=== PATIENT | female | born 1960 | race Caucasian/White ===

== ENCOUNTER 2019-10-19 11:30 | Outpatient (CLI) | payer OTHER, SELFPAY ==
--- NOTE | 2019-10-19 12:05 | XR_ITS ---
WS: [id number] Chest 2 views, 10/19/2019 Clinical Data: SHORT OF BREATH R SIDED PAIN/MILD ASTHMA EXACERBATION Comparison: Portable chest, 09/20/2013. Findings: No nodules, masses or effusions are seen. The heart is normal. The aortic arch and descendi ng aorta show minimal tortuosity. The pulmonary vascularity is not increased. No pneumonia or pneumot horax is seen. Diaphragms are flattened. There are clips in the right upper quadrant from a cholecyst ectomy. XR/XR chest 2V* [id number] Impression: Atherosclerosis and hyperinflation.
== END 2019-10-19 11:31 | disposition home or self-care (01) ==
LOC: RAD 11:37
PROVIDERS: Family Provider Registered Nurse; PCP Registered Nurse; Visit Provider Registered Nurse
DX: J45.901 Unspecified asthma with (acute) exacerbation (principal); I70.0 Atherosclerosis of aorta
CPT/HCPCS: 71046

== ENCOUNTER 2019-11-15 17:11 | Emergency (ER) | payer OTHER, SELFPAY ==
[2019-11-15 18:15] VITALS: BP 157/79; PULSE 98; RESP 16; TEMP 36.7; O2SAT 99; BMI 24.3
--- NOTE | 2019-11-15 19:00 | ED_ITS ---
HPI - Extremity Problem General: Chief complaint: Extremity Problem,Nontraumatic Stated complaint: left leg pain Time Seen by Provider: 11/15/19 18:59 History of Present Illness: HPI Narrative: Patient is a 59-year-old female comes to the ED with left lower extremity pain. Patient states that she had Left foot surgery 2 years ago and some bone spurs Were removed some spaces in between bones were opened up to help possible nerve decompression. Patient state s that after surgery she started having burning nerve pain that starts in the foot near the surgery site and moves up left leg. It moves up on the lateral side of the left leg and into the lateral part of the left thigh. She states that this has been going on for last 2 years this got worse and has progressed. She states the pain comes on at random times throughout the day and does not correlate with any movement or range of motion of the left leg. These episodes of pain will last anywhere from minutes to hours. The past couple days the pain is gotten a lot worse in last longer. Currently she is not having any pain in her left leg ED, but states last night she was having pain all night it was a 10 out of 10. Denies any leg swelling, chest pain, shortness of breath, abdominal pain, nausea, vomiting, bowel or bladder symptoms. Review of Systems General: Reports: 10 or more systems reviewed and unremarkable except in HPI and below PFSH ED PFSH: Statuses (acute, chronic, etc) shown below reflect problem list status as previously entered and may not be historically accurate Family History Father Prostate cancer Heart disease Mother Heart disease Diabetes Thyroid disease Hypertension Brother Bladder cancer Other Cancer Diverticulitis Myocardial infarct Social History Smoking and tobacco status: former smoker Quit status (tobacco): has quit using tobacco Year quit tobacco: 1982 Alcohol intake: never Lives independently: No Household members: spouse Marital status: Current occupational status: unemployed Current gender identity: Female Physical Exam Const: COMMON NORMALS: oriented x3 HENMT: COMMON NORMALS: normocephalic HEAD & SCALP: normocephalic MOUTH: oral and palatal mucosa normal THROAT: posterior oropharynx normal and uvula midline Neck/C-Spine: COMMON NORMALS: supple GENERAL: Yes normal visual inspection Resp: COMMON NORMALS: normal respiratory effort, no retractions, no use of accessory muscles and clear to auscultation bilaterally AUSCULTATION: clear to auscultation bilaterally Cardio: COMMON NORMALS: regular rate, regular rhythm, S1 normal heart sound, S2 normal heart sound, no gallops, no clicks, no murmurs and peripheral pulses 2+ throughout RATE: regular rate RHYTHM: regular rhythm HEART SOUNDS: S1 normal and S2 normal PERIPHERAL PULSES: pulses 2+ throughout GI: COMMON NORMALS: normal to inspection, nondistended, normoactive bowel sounds, soft to palpation, non-tender and no masses PALPATION: Yes soft : COMMON NORMALS: Yes no CVA tenderness BLADDER/KIDNEY EXAM: Yes no CVA tenderness Back/Pelvis: COMMON NORMALS: no CVA tenderness Extremity: LEFT LOWER EXTREMITY: Yes lower leg Left lower leg: Yes inspection (normal-no swelling or erythema), Yes palpation (mild tenderness lateral side ) and Yes neurovascular exam (intact) and Yes foot & digits (Midfoot) Left foot and digits: Yes inspection (no swelling or erythema.), Yes palpation (Tenderness on midfoot), Yes ROM (Normal) and Yes neurovascular exam (Intact) Neuro: COMMON NORMALS: oriented x3 and moves all extremities Skin: COMMON NORMALS: no rashes or lesions noted GENERAL SKIN EXAM: no rashes or lesions noted Course Vital Signs: Vital signs: Vital Signs Temperature 98.1 F 11/15/19 18:15 Pulse Rate 76 11/15/19 22:41 Respiratory Rate 18 11/15/19 22:41 Blood Pressure 133/86 11/15/19 22:41 Pulse Oximetry 99 11/15/19 22:41 Discharge Plan Discharge Patient Disposition: Home, Self-Care Clinical Impression: Nerve pain Condition: Stable Prescriptions: New gabapentin 300 mg capsule 300 mg PO BID Qty: 30 RF: 0 No Action levocetirizine 5 mg tablet 5 mg PO ONCE RF: 0 levothyroxine [Synthroid] 100 mcg tablet 100 mcg PO ONCE RF: 0 diclofenac epolamine [Flector] 1.3 % patch 12 hour 1 patch TOPICAL Q12H RF: 0 vitamin B complex [B Complex-Vitamin B12] Tablet 1 tab PO ONCE RF: 0 digestive enzymes Tablet 1 tab PO ONCE RF: 0 albuterol sulfate [ProAir HFA] 90 mcg/actuation HFA aerosol inhaler 2 inh INHALATION Q8H PRN (Reason: shortness of breath or wheezing) Qty: 6.7 RF: 0 montelukast [Singulair] 10 mg tablet 10 mg PO .at bedtime Qty: 90 RF: 0 Discharge Orders: Discharge Order (Routine); Ordered 11/15/19 Ordered By: Ryan Atkins Referrals: Asuncion Barahona, BUILD[employer] ENGINE[employer] [Primary Care Provider] - Discharge Diet: Regular Discharge Activity: Increase activity as tolerated Activity Restrictions/Additional Instructions: I put a referral to podiatry in to social work. They should be calling you in the next several days to set up an appointment.You can take the gabapentin as prescribed. Remember the first day take a dose of 300 mg, second day 600 mg, third day 900 mg and then you can up the dose as needed for pain up to 1800 mg a day. Take ibuprofen also to help with pain. Discharge Date/Time: 11/15/19 22:45 Coding Level of Care Code ED President/[employer] for Joanne Sanders
[2019-11-15 19:55] VITALS: PULSE 73
[2019-11-15] MEDS: gabapentin 300 mg Capsule PO (21:13)
[2019-11-15 22:41] VITALS: BP 133/86; PULSE 76; RESP 18; O2SAT 99
--- NOTE | 2019-11-16 11:25 | DCPLANNER ---
auditing manager had message to schedule a follow up appointment for patient with ortho. auditing manager called the ortho clinic, spoke with Lary. auditing manager was told that patients information would be printed and reviewed. Clinic will call nurse case manager and patient with appointment information.
--- NOTE | 2019-11-17 11:12 | DCPLANNER ---
Patient has a follow up appointment scheduled for Thursday, December 05, 2019 at 2:[address] Garrido. Clinic will call patient with appointment information.
--- NOTE | 2019-12-19 14:21 | DCPLANNER ---
Patient did attend appointment scheduled for 11.30.19 with ortho.
== END 2019-11-15 22:45 | disposition home or self-care (01) ==
PROVIDERS: Emergency Provider Physician Assistant; Family Provider Registered Nurse; PCP Registered Nurse
DX: M79.2 Neuralgia and neuritis, unspecified (principal); Z87.891 Personal history of nicotine dependence; Z98.890 Other specified postprocedural states
CPT/HCPCS: 99281; 99283

== ENCOUNTER → 2019-11-16 17:12 | Outpatient (BNVA) | payer OTHER, SELFPAY | PROVIDERS: Family Provider Registered Nurse; PCP Registered Nurse; Visit Provider Nurse Practitioner | DX: J06.9 Acute upper respiratory infection, unspecified (principal) | CPT/HCPCS: 87804 ==

== ENCOUNTER 2019-12-04 09:29 | Outpatient (CLI) | payer OTHER, SELFPAY ==
[2019-12-04 09:58] LABS: Basophils # 0.1 10^3/uL (0.0-0.1); Eosinophils # 0.1 10^3/uL (0.0-0.8); Eosinophils % 2.1 %; Hematocrit 40.4 % (37.0-47.0); Hemoglobin 13.2 g/dL (11.5-15.3); Lymphocytes # 4.1 10^3/uL (0.8-4.8); Lymphocytes % 65.3 %; Mean Corpuscular HGB Conc 32.7 g/dL (30.0-36.0); Mean Corpuscular Hemoglobin 29.3 pg (28.0-34.0); Mean Corpuscular Volume 89.6 fL (81-99); Mean Platelet Volume 9.9 fL (7.4-10.4); Monocytes # 0.4 10^3/uL (0.2-0.9); Monocytes % 5.9 %; Neutrophils # 1.6 10^3/uL (1.8-7.7); Neutrophils % 25.5 %; Nucleated Red Blood Cells % 0 %; Platelet Count 208 10^3/cmm (130-400); Red Blood Count 4.51 10^6/uL (4.1-5.3); Red Cell Distribution Width 13.4 % (12.1-15.1); White Blood Count 6.2 10^3/uL (4.0-10.0)
[2019-12-04 10:27] LABS: Slide Review Slide Review Perform
[2019-12-05 15:47] LABS: Immunoglobulin E 25 kU/L (<OR=114)
== END 2019-12-04 09:30 | disposition home or self-care (01) ==
LOC: LAB 09:33
PROVIDERS: Family Provider Registered Nurse; PCP Registered Nurse; Visit Provider Internal Medicine Critical Care Medicine
DX: J45.901 Unspecified asthma with (acute) exacerbation (principal); J32.9 Chronic sinusitis, unspecified; R06.02 Shortness of breath
CPT/HCPCS: 36415; 82785; 85025

== ENCOUNTER → 2019-12-05 13:44 | Outpatient (BNVA) | payer OTHER, SELFPAY | PROVIDERS: Family Provider Registered Nurse; PCP Registered Nurse; Referring Provider Physician Assistant; Visit Provider Podiatrist Foot & Ankle Surgery | DX: M79.672 Pain in left foot (principal) | CPT/HCPCS: 73630 ==

== ENCOUNTER 2019-12-13 08:08 | Outpatient (CLI) | payer OTHER, SELFPAY ==
--- NOTE | 2019-12-13 16:16 | PFTS_ITS ---
Date of Study:12/13/19 Date of Dictation: MECHANICS: Forced vital capacity (FVC) is normal. Forced expiratory volume in one second (FEV1) is normal. FEV1/FVC is normal. FLOW VOLUME LOOP: Scooping suggestive of small airways disease. LUNG VOLUMES: Total lung capacity (TLC) is normal. Residual volume (RV) is normal. DIFFUSING CAPACITY FOR CARBON MONOXIDE: Normal. INTERPRETATION: The pulmonary function tests are normal. There is no postbronchodilator response. The flow-volume loop is suggestive of small airways disease which could be secondary to smoking or age-related. Gas exchange (DLCO) is normal. MTDD
== END 2019-12-13 08:09 | disposition home or self-care (01) ==
PROVIDERS: Family Provider Registered Nurse; PCP Registered Nurse; Visit Provider Internal Medicine Critical Care Medicine
DX: R06.02 Shortness of breath (principal)
CPT/HCPCS: 94060; 94726; 94729

== ENCOUNTER 2020-01-02 11:18 | Outpatient (CLI) | payer OTHER, SELFPAY ==
--- NOTE | 2020-01-02 11:30 | CT_ITS ---
WS: [id number] CT ABDOMEN AND PELVIS NONCONTRAST HISTORY: kidney stone TECHNIQUE: Imaging performed through the abdomen and pelvis. Coronal and sagittal reformats are submi tted. All CT scans at [facility] use at least one of these dose optimization techniques: automated exposure control; mA and/or kV adjustment per patient size (includes targeted exams where d ose is matched to clinical indication); or iterative reconstruction. DLP: 1067.96 mGycm COMPARISON: 08/26/2012 Lower thorax: Linear atelectasis at the RIGHT middle lobe and RIGHT lower lobe bases. No mass or nodu les. Small hiatal hernia. Liver: Normal, no mass or intrahepatic dilatation. Gallbladder: Prior cholecystectomy. Pancreas: Normal. Spleen: Normal. Adrenal glands: Normal. Right kidney: Normal size RIGHT kidney. Nonobstructing 3 mm calcification lower pole. No significant perinephric stranding. 5 mm irregular shaped stone at the UV junction. The adjacent more proximal ure ter is very minimally dilated. This calcification was not present on 08/26/2010. Left kidney: Normal size with no stones, mass or atrophy. Abdominal aorta and IVC are unremarkable. No free fluid, intraperitoneal air or significant lymphadenopathy. GI tract: Diffuse constipation. The appendix is normal. There are a few scattered diverticula without acute inflammation. Abdominal wall: Fat-containing umbilical hernia. Pelvis: Numerous calcifications in the pelvis. Phleboliths and a 5 mm calcification in the distal RIG HT ureter. Osseous structures: No osteoblastic or osteolytic bone disease. CT/CT kidney stone [id number] IMPRESSION: 1. 5 mm irregular shaped calcification in the distal RIGHT ureter. RIGHT UV ju nction calcification causing only minimal adjacent proximal hydro-ureter. 2. Nonobstructing 3 mm calcification lower pole RIGHT kidney. 3. Normal appendix. 4. Constipation and small hiatal hernia. 5. Prior cholecystectomy.
== END 2020-01-02 11:19 | disposition home or self-care (01) ==
LOC: RADWPI 11:22
PROVIDERS: Family Provider Registered Nurse; PCP Registered Nurse; Visit Provider Registered Nurse
DX: N20.0 Calculus of kidney (principal); N13.4 Hydroureter; K59.00 Constipation, unspecified; K44.9 Diaphragmatic hernia without obstruction or gangrene; Z90.49 Acquired absence of other specified parts of digestive tract
CPT/HCPCS: 74176; 81000

== ENCOUNTER 2020-02-08 06:50 | Outpatient (CLI) | payer OTHER, SELFPAY ==
--- NOTE | 2020-02-08 07:00 | XR_ITS ---
WS: [id number] ABDOMEN 1 VIEW(S) HISTORY: URETERAL CALCULUS COMPARISON: None available. Normal bowel gas pattern. No suspicious calcifications or masses. No distal RIGHT ureteral calcification identified. No bone abnormality. Prior cholecystectomy. XR/XR KUB [id number] IMPRESSION: Prior cholecystectomy. No ureteral calcification identified.
== END 2020-02-08 06:51 | disposition home or self-care (01) ==
PROVIDERS: Family Provider Registered Nurse; PCP Registered Nurse; Visit Provider Urology
DX: N20.1 Calculus of ureter (principal); N39.0 Urinary tract infection, site not specified; N39.41 Urge incontinence; Z90.49 Acquired absence of other specified parts of digestive tract
CPT/HCPCS: 74018; 81001

== ENCOUNTER 2020-02-12 11:11 | Day surgery (SDC) | payer OTHER, SELFPAY ==
[2020-02-12] VITALS (7 sets, daily range): BP systolic 107–143; BP diastolic 60–71; PULSE 60–95; RESP 15–18; TEMP 36.2–37; O2SAT 98–100; BMI 24.7
--- NOTE | 2020-02-12 11:18 | XR_ITS ---
WS: [id number] XR KUB [id number] REASON FOR EXAM: right ureteral stone FINDINGS: Nonspecific gas and feces are seen throughout the colon. Bilateral bat wing deformities at the L5-S1 articulations are seen bilaterally. A definite stone is not seen in the region of the ureters. XR/XR KUB 19516 IMPRESSION: No definite stones are seen in the kidneys ureter bladder region on the right.
[2020-02-12] MEDS: sodium chloride 0.9% 1,000 ML 30 ML IV (12:05)
[2020-02-12] MEDS: scopolamine 1.5 Patch 1 PATCH TRANSDERMA (12:07)
--- NOTE | 2020-02-12 12:17 | ANES.PREANE2 ---
Pre-Anesthetic Assessment Pre-Anesthetic Assessment: Height/Weight: Height 1.6 m Weight 63.503 kg Temp Pulse Resp BP Pulse Ox 98.6 F 88 18 143/71 100 02/12/20 11:51 02/12/20 11:51 02/12/20 11:51 02/12/20 11:51 02/12/20 11:51 Preop Diagnosis: Refractory right distal ureteral stone Proposed Procedure: Operation Date: 02/12/20 13:35 Proposed Procedures p ESWL 93934 18243 63538 N20.1(Right) - Carl Sosa MD s Right Distal Ureteral Stone(Right) - Carl Sosa MD s Poss Cystoscopy(Right) - Carl Sosa MD s Retrograde Pyelogram(Right) - Carl Sosa MD Familial anesthetic complications: PONV -placed scopolamine patch Was Beta Lauren taken within 24 hours: N/A Last intake: Intake Last Liquid Date 02/11/20 Last Liquid Time 22:00 Last Solid Date 02/10/20 Last Solid Time 22:00 Social: Social History: No alcohol and No tobacco Exam: Pre-Anes Outpt Exam: alert, oriented x 3, clear to auscultation bilaterally and regular rate & rhythm Airway: Cervical ROM: WNL MP: 1 Dentition: False Additional comments: cleft palate Pulmonary: Pulmonary: Asthma CV/HEM: CV/HEM: None reported : : None reported Hepatic: Hepatic: None reported GI: GI: None reported Metabolic: Metabolic: Thyroid Musc/skel: Musc/skel: None reported Neuropsych: Neuropsych: None reported Anesthetic Plan: ASA status: 2 Anesthesia: General Risk of > 500 ml blood loss (7ml/kg in children): No Meds/Allergies Current Medications: Current Medications Generic Name Dose Route Start Last Admin Trade Name Freq PRN Reason Stop Dose Admin Sodium Chloride 1,000 mls @ 30 ml s/hr 02/12/20 11:30 02/12/20 12:05 Sodium Chloride 0.9% IV 02/13/20 11:29 30 mls/hr .Q24H ELY Administration PFSH Anesthesia PFSH: Medical History (Updated 02/08/20 @ 15:10 by Carl Sosa MD) Acid reflux History of cleft palate Hypothyroid Neuritis of left lower extremity Recurrent UTI Urgency incontinence Surgical History History of cholecystectomy History of hernia repair History of hysterectomy History of rectal surgery Social History Smoking and tobacco status: former smoker Quit status (tobacco): has quit using tobacco Year quit tobacco: 1982PD x 15 Years Alcohol intake: never Lives independently: Yes Household members: spouse Marital status: Current occupational status: disabled History of recent travel: Yes (in june) Current gender identity: Female Data Anesthesia Cardiac Studies: No Data to Display
--- NOTE | 2020-02-12 13:19 | P.HPUD_ITS ---
Surgery/Procedure H&P Update DATE OF PROCEDURE: February 12, 2020 DATE H&P PERFORMED: 02/08/20 H&P UPDATE INFORMATION: I have reviewed H&P completed within last 30 days, I have examined patient prior to procedure, No changes to prior documentation and H&P is in [facility] [place] on date indicated PREOP DIAGNOSIS: Refractory right distal ureteral stone PLANNED PROCEDURE: Operation Date: 02/12/20 13:35 Proposed Procedures p ESWL [id number] 50050 24217 N20.1(Right) - MD sherry Matias Right Distal Ureteral Stone(Right) - MD sherry Matias Poss Cystoscopy(Right) - MD sherry Matias Retrograde Pyelogram(Right) - Carl Sosa MD
--- NOTE | 2020-02-12 13:34 | PM.OP ---
Operative Report Date of procedure: February 12, 2020 Pre-op Diagnosis: Refractory right distal ureteral stone Post-op diagnosis: same Procedure Done: Cystoscopy, right retrograde ureteropyelogram Right ureteral stent placement Right distal ureteral stone extracorporeal shockwave lithotripsy Pathology: none sent Surgeon: Ian Anesthesia: General Complications: None Findings: Stone confirmed to be in the ureter with small amount of contrast injected in the right distal ureter. Treated with ESWL with shock head positioned anteriorly. Good change 6 x 26 stent Condition: stable Disposition: PACU Brief History: Evelin is a very pleasant 59-year-old white female recently diagnosed with a right distal ureteral stone with obstructive changes. Stone failed to pass with conservative management and due to ongoing symptoms over a period of approximately 1 month she elected to proceed with intervention. It was decided to proceed with ESWL as first-line therapy with or without stenting. Procedure: After routine preoperative evaluation examination and obtaining of informed consent she was taken to the operating suite on 02/12/2020 where general anesthesia was administered without difficulty after appropriate timeout was performed, SCDs confirmed to be functioning, preoperative antibiotics administered, beta-michael protocol confirmed. Prepped and draped in usual sterile fashion in dorsolithotomy position pain careful attention to avoiding pressure points. 21 Yoruba cystoscope with 30 degree lens was introduced into urethral meatus and advanced into the bladder under videoscopy. Bladder was systematically examined. No other gross pathology was identified. 8 Yoruba cone-tip catheter was intubated into the right ureteral orifice for right retrograde ureteropyelogram which confirmed the calcifications suspicious for the stone to be intraluminal. Flexible tip guidewire was then passed beyond the stone and a ureteral stent passed without difficulty and confirmed in appropriate position as confirmed via fluoroscopy and cystoscopy. Bladder was drained. She was then positioned in supine position paying careful attention to avoiding pressure points. With shock head positioned anteriorly the stone was brought into the focal point utilizing biplanar fluoroscopy. Treatment was initiated intensity of 1 and advance to an intensity of 6. Rate was initiated at 70 and advanced to 90 as the stone started demonstrating fragmentation change. At the completion the stone was significantly changed and difficult to identify. She tolerated procedure well without complications and was awakened in the operating room and returned to recovery room in stable condition. PLANS: 1. Follow-up next week with KUB possible cystoscopy stent removal.
[2020-02-12] MEDS: iohexol 300 mg/mL 50 mL Btl (OR ONLY) XX (14:01)
== END 2020-02-12 16:07 | disposition home or self-care (01) ==
PROVIDERS: Family Provider Registered Nurse; PCP Registered Nurse; Visit Provider Urology
PROC: (CPT 50590; principal; 2020-02-12 13:35)
PROC: 0TJB8ZZ Inspection of Bladder, Via Natural or Artificial Opening Endoscopic (ICD-10-PCS; CPT 52000; 2020-02-12 13:35)
PROC: (CPT 74420; 2020-02-12 13:35)
PROC: (CPT 50605; 2020-02-12 13:35)
DX: N20.1 Calculus of ureter (principal); Z87.891 Personal history of nicotine dependence; K21.9 Gastro-esophageal reflux disease without esophagitis; E03.9 Hypothyroidism, unspecified
CPT/HCPCS: 50590; 52332; 12345; 74018; C2625; J0690; J2001; J2704; J3010; J3490; J7030

== ENCOUNTER 2020-02-21 08:14 | Outpatient (CLI) | payer OTHER, SELFPAY ==
--- NOTE | 2020-02-21 08:21 | XR_ITS ---
WS: [id number] ABDOMEN: SUPINE FILM HISTORY: KIDNEY STONE COMPARISON: 02/12/2020 Moderate constipation. No organomegaly. Prior cholecystectomy. Right kidney: Double pigtail RIGHT ureteral stent. No calcifications overlying the kidney. There is a small calcification overlying the stent distally measuring 4 mm. Left kidney: No renal or ureteral stone identified. XR/XR KUB [id number] IMPRESSION: 1. Interval placement of a double pigtail RIGHT ureteral stent. 2. 4 mm calcification overlies the distal ureteral stent.
== END 2020-02-21 08:15 | disposition home or self-care (01) ==
LOC: RAD 08:18
PROVIDERS: Family Provider Registered Nurse; PCP Registered Nurse; Visit Provider Urology
DX: N20.0 Calculus of kidney (principal); N20.1 Calculus of ureter; Z96.0 Presence of urogenital implants; N39.0 Urinary tract infection, site not specified
CPT/HCPCS: 74018; 81001

== ENCOUNTER 2020-04-16 09:11 | Outpatient (CLI) | payer MEDICARE, OTHER, SELFPAY ==
--- NOTE | 2020-04-16 09:45 | XRR_ITS ---
PROCEDURE INFORMATION: Exam: XR Abdomen, 1 View Exam date and time: 04/16/2020 9:20 AM Age: 59 years old Clinical indication: Condition or disease; Kidney or ureter condition; Calculus (stone) in ureter; Patient HX: Follow up of stones x 3 months TECHNIQUE: Imaging protocol: XR of the abdomen. Views: Frontal supine view of the abdomen. 1 View. COMPARISON: OK XR KUB [id number] 02/21/2020 8:26 AM FINDINGS: Gastrointestinal tract: bowel gas pattern is nonspecific. Air filled large bowel including distal rectal gas. Scattered loops of air filled small bowel none of which are dilated. Large amount of stool throughout the large bowel. Organs: Surgical clips are present in the region of the gallbladder fossa. Bones/joints: Unremarkable. XR/XR KUB 58068 IMPRESSION: 1. Bowel gas pattern is nonspecific. Air filled large bowel including distal rectal gas. Scattered loops of air filled small bowel none of which are dilated. 2. Large amount of stool throughout the large bowel.
== END 2020-04-16 09:12 | disposition home or self-care (01) ==
LOC: RAD 09:16
PROVIDERS: Family Provider Registered Nurse; PCP Registered Nurse; Visit Provider Urology
DX: N20.9 Urinary calculus, unspecified (principal); N39.0 Urinary tract infection, site not specified
CPT/HCPCS: 74018; 81001

== ENCOUNTER 2020-04-30 10:23 | Outpatient (CLI) | payer MEDICARE, OTHER, SELFPAY ==
--- NOTE | 2020-04-30 10:30 | XRR_ITS ---
PROCEDURE INFORMATION: Exam: XR Lumbosacral Spine, 2 or 3 Views Exam date and time: 04/30/2020 10:44 AM Age: 59 years old Clinical indication: Low back pain; Additional info: Low back pain x 1 week. TECHNIQUE: Imaging protocol: XR of the lumbosacral spine, 2 or 3 views. COMPARISON: MRI Lumbar Spine w/o 52793 09/16/2016 7:27 AM FINDINGS: Vertebrae: Transitional vertebra at the lumbosacral junction designated L6. Marginal osteophytes without significant disc space narrowing. No acute osseous pathology. Anatomic alignment. Intraperitoneal space: Status post cholecystectomy. Gastrointestinal tract: Prominent stool. XR/XR lumbar spine 2-3V* [id number] IMPRESSION: Transitional vertebra and marginal osteophytes.
== END 2020-04-30 10:24 | disposition home or self-care (01) ==
LOC: RAD 10:27
PROVIDERS: Family Provider Registered Nurse; PCP Registered Nurse; Visit Provider Nurse Practitioner Family
DX: M54.5 Low back pain (principal); E53.8 Deficiency of other specified B group vitamins; E03.9 Hypothyroidism, unspecified; R53.83 Other fatigue; E55.9 Vitamin D deficiency, unspecified; D64.9 Anemia, unspecified; Q76.49 Other congenital malformations of spine, not associated with scoliosis; M25.78 Osteophyte, vertebrae
CPT/HCPCS: 72100; 80053; 82306; 82607; 84443; 85025

== ENCOUNTER → 2020-06-20 15:17 | Outpatient (BNVA) | payer MEDICARE, OTHER, SELFPAY | PROVIDERS: PCP Registered Nurse; Visit Provider Registered Nurse | DX: N39.0 Urinary tract infection, site not specified (principal); N39.41 Urge incontinence | CPT/HCPCS: 80053; 81000; 87077; 87086; 87186 ==

== ENCOUNTER → 2020-08-02 10:13 | Outpatient (BNVA) | payer MEDICARE, OTHER, SELFPAY | PROVIDERS: PCP Registered Nurse; Visit Provider Registered Nurse | DX: E55.9 Vitamin D deficiency, unspecified (principal); E03.9 Hypothyroidism, unspecified; H53.9 Unspecified visual disturbance | CPT/HCPCS: 80053; 82306 ==

== ENCOUNTER → 2020-08-12 14:28 | Outpatient (BNVA) | payer MEDICARE, OTHER, SELFPAY | PROVIDERS: PCP Registered Nurse; Visit Provider Registered Nurse | DX: Z11.59 Encounter for screening for other viral diseases (principal) | CPT/HCPCS: 87635 ==

== ENCOUNTER → 2020-10-22 15:08 | Outpatient (BNVA) | payer MEDICARE, OTHER, SELFPAY | PROVIDERS: PCP Registered Nurse; Referring Provider Registered Nurse; Visit Provider Surgery | DX: Z11.59 Encounter for screening for other viral diseases (principal); K64.9 Unspecified hemorrhoids; K64.4 Residual hemorrhoidal skin tags; K64.5 Perianal venous thrombosis | CPT/HCPCS: 87635 ==

== ENCOUNTER 2020-10-23 06:55 | Outpatient (CLI) | payer MEDICARE, OTHER, SELFPAY ==
--- NOTE | 2020-10-23 07:30 | XR_ITS ---
WS: [id number] KUB, 10/23/2020 Clinical Data: Stones Comparison: KUB, 04/16/2020. Findings: No abnormal intraabdominal masses or calcifications are seen. There is no dilatated small bowel or ev idence of obstruction. There is a large amount of fecal material throughout the colon. There are clips in the right upper qu adrant from a cholecystectomy. XR/XR KUB 21240 Impression: Large amount of fecal material in the colon.
== END 2020-10-23 06:56 | disposition home or self-care (01) ==
LOC: RAD 06:58
PROVIDERS: PCP Registered Nurse; Visit Provider Urology
DX: N20.1 Calculus of ureter (principal)
CPT/HCPCS: 74018; 81003

== ENCOUNTER 2020-10-24 07:50 | Day surgery (SDC) | payer MEDICARE, OTHER, SELFPAY ==
[2020-10-23 14:18] VITALS: BMI 24.7
[2020-10-24 08:53] VITALS: BP 135/71; TEMP 36.6
--- NOTE | 2020-10-24 09:10 | W.PM.OPSUD ---
Surgery/Procedure H&P Update DATE OF PROCEDURE: October 24, 2020 DATE H&P PERFORMED: 10/22/20 H&P UPDATE INFORMATION: I have reviewed H&P completed within last 30 days, I have examined patient prior to procedure and No changes to prior documentation PREOP DIAGNOSIS: thrombosed external hemorrhoid PLANNED PROCEDURE: Operation Date: 10/24/20 09:10 Proposed Procedures p Hemorroidectomy 94977 K64.9(Not Applicable) - aScha Paul MD
[2020-10-24] MEDS: sodium chloride 0.9% 1,000 ML 30 ML IV (09:15)
--- NOTE | 2020-10-24 09:48 | ANES.PREANE2 ---
Pre-Anesthetic Assessment Pre-Anesthetic Assessment: Height/Weight: Height 1.6 m Weight 63.503 kg Temp BP 97.8 F 135/71 10/24/20 08:53 10/24/20 08:53 Preop Diagnosis: thrombosed external hemorrhoid Proposed Procedure: Operation Date: 10/24/20 09:10 Proposed Procedures p Hemorroidectomy 34365 K64.9(Not Applicable) - Sacha Paul MD Was Beta Lauren taken within 24 hours: N/A Last intake: Intake Last Liquid Date 10/23/20 Last Solid Date 10/23/20 Social: Social History: No alcohol and No tobacco Exam: Pre-Anes Outpt Exam: alert, oriented x 3, clear to auscultation bilaterally and regular rate & rhythm Airway: Submandibular: WNL Cervical ROM: WNL MP: 2 Pulmonary: Pulmonary: Asthma Metabolic: Metabolic: Thyroid Neuropsych: Neuropsych: Anxiety and Depression Anesthetic Plan: ASA status: 2 Anesthesia: General Risk of > 500 ml blood loss (7ml/kg in children): No PFSH Anesthesia PFSH: Medical History Acid reflux Chronic constipation History of cleft palate Hypothyroid Neuritis of left lower extremity Recurrent UTI S/P extracorporeal shock wave therapy WITH URETERAL STENT PLACEMENT Urgency incontinence Urolithiasis Vitamin D deficiency Surgical History H/O esophagogastroduodenoscopy History of cholecystectomy History of hernia repair History of hysterectomy History of rectal surgery Status post colonoscopy Family History Father , at age 83 Prostate cancer Heart disease Mother Heart disease Diabetes Thyroid disease Hypertension Brother Bladder cancer Other Cancer Diverticulitis Myocardial infarct Social History Smoking and tobacco status: former smoker Quit status (tobacco): has quit using tobacco Year quit tobacco: 1982 - PD x 15 Years Alcohol intake: never Lives independently: Yes Household members: spouse Marital status: Current occupational status: disabled History of recent travel: No (in june) Current gender identity: Female Data Anesthesia Cardiac Studies: No Data to Display
[2020-10-24 10:31] VITALS: BP 109/66; PULSE 75; RESP 18; TEMP 36.7; O2SAT 97
--- NOTE | 2020-10-24 10:35 | ANE.PACU2 ---
Inpatient post-anesthesia follow up: Airway intact: Yes Vital signs: Temperature 98.1 F Pulse Rate 75 Respiratory Rate 18 Blood Pressure 109/66 Pulse Oximetry 97 Oxygen Delivery Me thod Room Air Oxygen Flow Rate Fraction of Inspir ed Oxygen Hydration adequate: Yes Nausea and vomiting: No Pain level: 1 Mental status: Baseline
[2020-10-24 10:48] VITALS: BP 117/66; PULSE 68; RESP 18; O2SAT 98
--- NOTE | 2020-10-24 10:59 | PM.OP ---
Operative Report Date of procedure: October 24, 2020 Pre-op Diagnosis: thrombosed external hemorrhoid Post-op diagnosis: same Procedure Done: Excision of thrombosed external hemorrhoid Specimens removed/disposition: Thrombosed external hemorrhoid Surgeon: Sacha Paul Anesthesia: MAC Condition: stable Disposition: same day Procedure: The patient was taken to the operating room and placed in the right lateral position under MAC after IV antibiotic had been administered. The perianal area was prepped and draped in a sterile manner. 1% lidocaine with . 5% Marcaine was infiltrated for a perianal block. Using electrocautery the thrombosed external hemorrhoid was excised, hemostasis ensured and skin was approximated using a running 3-0 chromic suture. An Adaptic gauze was placed. Patient was transferred to same-day surgery in stable condition.
--- NOTE | 2020-10-24 11:38 | ANE.PACU2 ---
Inpatient post-anesthesia follow up: Airway intact: Yes Vital signs: Temperature 98.1 F Pulse Rate 68 Respiratory Rate 18 Blood Pressure 117/66 Pulse Oximetry 98 Oxygen Delivery Me thod Room Air Oxygen Flow Rate Fraction of Inspir ed Oxygen Hydration adequate: Yes Nausea and vomiting: No Pain level: 1 Mental status: Baseline
== END 2020-10-24 11:09 | disposition home or self-care (01) ==
PROVIDERS: PCP Registered Nurse; Visit Provider Surgery
PROC: (CPT 46320; principal; 2020-10-24 09:10)
DX: K64.5 Perianal venous thrombosis (principal); J45.909 Unspecified asthma, uncomplicated; F41.9 Anxiety disorder, unspecified; F32.9 Major depressive disorder, single episode, unspecified; Z87.891 Personal history of nicotine dependence
CPT/HCPCS: 46320; 12345; 88304; J0690; J3010; J3490; J7030

== ENCOUNTER 2020-12-16 11:44 | Outpatient (CLI) | payer MEDICARE, OTHER, SELFPAY ==
--- NOTE | 2020-12-16 11:45 | MR_ITS ---
WS: [id number] MRI LUMBAR SPINE NONCONTRAST TECHNIQUE: Sagittal T1, T2 and STIR imaging. Axial T1 and T2 imaging. CLINICAL INFORMATION: M54.40 - Lumbago with sciatica, unspecified side COMPARISON: MRI 2016 FINDINGS: Mild lumbar curve. No acute compression. Mild annular bulging worse L4-5 similar to previous. No acut e appearing compression fractures. L1-L2: Mild annular bulging. Mild facet arthropathy. Spinal canal and foramen are patent. L2-L3: Mild annular bulging. Spinal canal and foramen are patent. Mild facet arthropathy. L3-L4: Mild annular bulging with slight effacement of the ventral thecal sac. Moderate facet arthropa thy. Spinal canal and foramen are patent. L4-L5: Mild annular bulging with narrowing of the left greater than right subarticular recess. Slight impingement traversing L5 nerve roots. Mild central canal stenosis. Foramen are patent. Mild facet a rthropathy. L5-S1: L5 is partially sacralized. Spinal canal and foramen are patent. Mild facet arthropathy. Overall no significant changes since September 2016. MR/MR lumbar spine wo con* [id number] IMPRESSION: 1. Mild lumbar curve. No acute compression. No high-grade central canal stenos is. 2. Mild annular bulging L4-5 with mild central canal stenosis and slight impin gement traversing L5 nerve roots bilaterally left greater than right. This is u nchanged since 2016 3. Mild facet arthropathy L3-L4 and L4-L5.
== END 2020-12-16 11:45 | disposition home or self-care (01) ==
LOC: RADSHAW 11:47
PROVIDERS: PCP Registered Nurse; Visit Provider Registered Nurse
DX: M54.40 Lumbago with sciatica, unspecified side (principal); M47.816 Spondylosis without myelopathy or radiculopathy, lumbar region; M51.26 Other intervertebral disc displacement, lumbar region
CPT/HCPCS: 72148

== ENCOUNTER → 2021-01-06 10:44 | Outpatient (BNVA) | payer MEDICARE, OTHER, SELFPAY | PROVIDERS: PCP Registered Nurse; Referring Provider Registered Nurse; Visit Provider Anesthesiology Pain Medicine | DX: M47.816 Spondylosis without myelopathy or radiculopathy, lumbar region (principal); M54.41 Lumbago with sciatica, right side; M51.26 Other intervertebral disc displacement, lumbar region | CPT/HCPCS: 99205 ==

== ENCOUNTER → 2021-01-13 13:03 | Outpatient (BNVA) | payer MEDICARE, OTHER, SELFPAY | PROVIDERS: PCP Registered Nurse; Visit Provider Anesthesiology Pain Medicine | DX: M47.816 Spondylosis without myelopathy or radiculopathy, lumbar region (principal); M54.40 Lumbago with sciatica, unspecified side | CPT/HCPCS: 64493; 64494; 64495; J3490 ==

== ENCOUNTER → 2021-01-28 10:44 | Outpatient (BNVA) | payer MEDICARE, OTHER, SELFPAY | PROVIDERS: PCP Registered Nurse; Visit Provider Anesthesiology Pain Medicine | DX: M54.41 Lumbago with sciatica, right side (principal); M54.42 Lumbago with sciatica, left side; M47.816 Spondylosis without myelopathy or radiculopathy, lumbar region; M51.26 Other intervertebral disc displacement, lumbar region | CPT/HCPCS: 99213 ==

== ENCOUNTER 2021-02-07 10:20 | Outpatient (CLI) | payer MEDICARE, OTHER, SELFPAY ==
--- NOTE | 2021-02-07 10:30 | XR_ITS ---
WS: [id number] Exam: XR KUB [id number] Date/Time of Exam: 02/07/2021 10:46 AM Reason For Exam: K59.09 - Other constipation Comparison 10/23/2020. No bowel obstruction or free air. Visualized organ margins are intact. Signs of prior cholecystectomy . Large amount retained stool in the colon. Regional bony elements are intact. XR/XR KUB [id number] IMPRESSION: 1. Constipation. No acute abdominal process.
== END 2021-02-07 10:21 | disposition home or self-care (01) ==
PROVIDERS: PCP Registered Nurse; Visit Provider Registered Nurse
DX: K59.09 Other constipation (principal)
CPT/HCPCS: 74018; 80053; 81000; 85025

== ENCOUNTER 2021-03-13 08:26 | Day surgery (SDC) | payer MEDICARE, OTHER, SELFPAY ==
[2021-03-08 13:42] LABS: Quest SARS-CoV-2 RNA NOT DETECTED (NOT DETECTED)
[2021-03-11 13:38] VITALS: BMI 24.7
[2021-03-13 08:46] VITALS: BP 139/101; PULSE 107; RESP 16; TEMP 36.7; O2SAT 100
[2021-03-13] MEDS: sodium chloride 0.9% 1,000 ML 30 ML IV (08:56)
--- NOTE | 2021-03-13 10:01 | P.HP_ITS ---
Same Day Surgery H&P Indication for Procedure/HPI DATE OF PROCEDURE: March 13, 2021 CHIEF COMPLAINT/INDICATIONFOR SURGICAL PROCEDURE: Constipation constipation PREOP DIAGNOSIS: diagnostic PLANNED PROCEDRUE: Operation Date: 03/13/21 09:15 Proposed Procedures p Colonoscopy 75708 k59.09(Not Applicable) - Sacha Paul MD Medications/Allergies* Home Medications Medication Instructions Recorded Confirmed Type cetirizine 10 mg tablet 10 mg PO DAILY 05/20/20 03/13/21 History levothyroxine [Synthroid] 100 mcg PO DAILY 03/11/21 03/13/21 History Allergies/Adverse Reactions Allergy/AdvReac Type Severity Reaction Status Date / Time meperidine [From Demerol] Allergy Severe ADR/ALGY-Hy Verified 03/11/21 13:35 potension naproxen [From Aleve] Allergy Severe ADR/ALGY-Pa Verified 03/11/21 13:35 lpitations ciprofloxacin [From Cipro] Allergy Nausea, Verified 03/11/21 13:35 Chest tightness methylprednisolone Allergy Edema Verified 03/11/21 13:35 [From Depo-Medrol] codeine AdvReac Severe ADR-Halluci Verified 03/11/21 13:35 nating sulfamethoxazole AdvReac ADR-Anxiety Verified 03/11/21 13:35 [From Bactrim] trimethoprim [From Bactrim] AdvReac ADR-Anxiety Verified 03/11/21 13:35 Current Medications: Generic Name Dose Route Start Last Admin Trade Name Freq PRN Reason Stop Dose Admin Sodium Chloride 1,000 mls @ 30 mls/hr 03/13/21 08:45 03/13/21 08:56 Sodium Chloride 0.9% IV 03/14/21 08:44 30 mls/hr .Q24H ELY Administration Pertinent History/Comorbid Conditions* Medical History (Updated 01/06/21 @ 12:02 by Miky Perla MD) Acid reflux Anxiety and depression Chronic constipation History of cleft palate Hypothyroid Neuritis of left lower extremity Recurrent UTI S/P extracorporeal shock wave therapy WITH URETERAL STENT PLACEMENT Urgency incontinence Urolithiasis Vitamin D deficiency Surgical History (Updated 11/04/20 @ 10:02 by Sacha Paul MD) H/O esophagogastroduodenoscopy History of cholecystectomy History of hernia repair History of hysterectomy History of rectal surgery S/P hemorrhoidectomy (10/24/20) Status post colonoscopy (~2016) Family History (Updated 10/06/19 @ 14:05 by Stephanie Gutierrez LPN) Father, at age 83 Prostate cancer Father Diabetes Mother Bladder cancer Brother Diverticulitis Heart disease Father Mother Myocardial infarct Cancer Hypertension Mother Thyroid disease Mother Social History Smoking and tobacco status: former smoker Quit status (tobacco): has quit using tobacco Year quit tobacco: 1982 - 1PPD x 15 Years Alcohol intake: never Lives independently: Yes Household members: spouse Marital status: Current occupational status: disabled History of recent travel: No (in june) Current gender identity: Female Pertinent Exam Findings alert, oriented x 3 and regular rate & rhythm Recommendations Surgery/Procedure today Coding Level of Care Code Acute Senior Analyst Developer for Joanne Sanders
[2021-03-13 10:17] VITALS: BP 100/64; PULSE 85; RESP 16; TEMP 36.6; O2SAT 97
[2021-03-13 10:32] VITALS: BP 122/75; PULSE 77; RESP 18; TEMP 36.6; O2SAT 100
--- NOTE | 2021-03-13 14:49 | ANE.PACU2 ---
Inpatient post-anesthesia follow up: Airway intact: Yes Vital signs: Temperature 97.8 F Pulse Rate 77 Respiratory Rate 18 Blood Pressure 122/75 Pulse Oximetry 100 Oxygen Delivery Me thod Room Air Oxygen Flow Rate Fraction of Inspir ed Oxygen Hydration adequate: Yes Nausea and vomiting: No Pain level: 1 Mental status: Baseline
== END 2021-03-13 10:45 | disposition home or self-care (01) ==
PROVIDERS: PCP Registered Nurse; Visit Provider Surgery
PROC: 0DJD8ZZ Inspection of Lower Intestinal Tract, Via Natural or Artificial Opening Endoscopic (ICD-10-PCS; CPT 45378; principal; 2021-03-13 09:15)
DX: K59.00 Constipation, unspecified (principal); K21.9 Gastro-esophageal reflux disease without esophagitis; F41.9 Anxiety disorder, unspecified; F32.9 Major depressive disorder, single episode, unspecified; E03.9 Hypothyroidism, unspecified; E55.9 Vitamin D deficiency, unspecified; Z87.891 Personal history of nicotine dependence; K57.30 Diverticulosis of large intestine without perforation or abscess without bleeding
CPT/HCPCS: 45378; 87635; 96360; 96361; J2704; J7030

== ENCOUNTER 2021-06-02 11:41 | Outpatient (CLI) | payer MEDICARE, OTHER, SELFPAY ==
--- NOTE | 2021-06-02 11:47 | XR_ITS ---
WS: [id number] Exam: XR KUB [id number] Date/Time of Exam: 06/02/2021 12:12 PM Reason For Exam: N20.0 - Calculus of kidney Comparison 02/07/2021. No bowel obstruction or free air. Visualized organ margins appear normal. Signs of prior cholecystect sandee. Regional bony elements are unremarkable. XR/XR KUB [id number] IMPRESSION: 1. No acute abdominal finding.
== END 2021-06-02 11:42 | disposition home or self-care (01) ==
PROVIDERS: PCP Registered Nurse; Visit Provider Registered Nurse
DX: N20.0 Calculus of kidney (principal); R10.9 Unspecified abdominal pain
CPT/HCPCS: 74018; 81000; 87086

== ENCOUNTER 2021-06-11 08:55 | Outpatient (CLI) | payer MEDICARE, OTHER, SELFPAY ==
--- NOTE | 2021-06-11 09:15 | CT_ITS ---
WS: [id number] CT ABDOMEN PELVIS TECHNIQUE: Noncontrast CT of the abdomen and pelvis with coronal and sagittal reformatted images. CLINICAL INFORMATION: N20.0 - Calculus of kidney COMPARISON: January 02, 2020 DLP: 1020.[address] scans at [facility] use at least one of these dose optimization techniques: automat ed exposure control; mA and/or kV adjustment per patient size (includes targeted exams where dose is matched to clinical indication); or iterative reconstruction. FINDINGS: Previously described 5 mm distal right UVJ has resolved. No hydronephrosis in right kidney today. Rig ht ureter is decompressed. No obstructing right renal or ureteral calculi. No hydronephrosis in the left kidney. Left ureter is decompressed. No obstructing left renal or urete ral calculi. Pelvic phleboliths. Subsegmental atelectasis right lower lobe. Subsegmental atelectasis in the right middle lobe. Normal noncontrast liver. Cholecystectomy clips. Noncontrast spleen is normal. Small esophageal hiatal herni a. Normal caliber abdominal aorta.Sigmoid diverticulosis. No evidence of acute diverticulitis. No eviden ce of high-grade small or large bowel obstruction. Scattered stool in the colon. Low-lying cecum in t he right lower quadrant. Normal appendix in the right lower quadrant. A few diverticuli involving the right descending colon unchanged. Noncontrast pancreas is normal. Fat-containing umbilical hernia. N o abdominal or pelvic lymphadenopathy. CT/CT kidney stone [id number] IMPRESSION: 1. Normal appendix in the right lower quadrant. 2. No obstructing renal or ureteral calculi. No hydronephrosis. 3. No evidence of small or large bowel obstruction. 4. Prior cholecystectomy. 5. Tiny incidental fat-containing umbilical hernia.
== END 2021-06-11 08:56 | disposition home or self-care (01) ==
PROVIDERS: PCP Registered Nurse; Visit Provider Registered Nurse
DX: N20.0 Calculus of kidney (principal); K42.9 Umbilical hernia without obstruction or gangrene; Z90.49 Acquired absence of other specified parts of digestive tract
CPT/HCPCS: 74176

== ENCOUNTER 2021-06-12 11:17 | Outpatient (CLI) | payer MEDICARE, OTHER, SELFPAY ==
--- NOTE | 2021-06-12 11:23 | XR_ITS ---
WS: [id number] Right hip, AP and frog leg views, 06/12/2021 Clinical Data: M25.551 - Pain in right hip Comparison: None. Findings: No fractures or dislocations are seen. The hip joint is intact. The soft tissues are not remarkable. The adjacent pelvis is normal. Right hip shows no erosion, sclerosis, narrowing or cyst formation. XR/XR hip RT 2-3V wo/w pel* [id number] Impression: Negative right hip. Tonnis classification: grade 0: normal radiographs
== END 2021-06-12 11:18 | disposition home or self-care (01) ==
PROVIDERS: PCP Registered Nurse; Visit Provider Registered Nurse
DX: M25.551 Pain in right hip (principal)
CPT/HCPCS: 73502

== ENCOUNTER → 2021-08-14 10:39 | Outpatient (BNVA) | payer MEDICARE, OTHER, SELFPAY | PROVIDERS: PCP Registered Nurse; Visit Provider Registered Nurse | DX: E03.9 Hypothyroidism, unspecified (principal); I10 Essential (primary) hypertension; E53.8 Deficiency of other specified B group vitamins; E55.9 Vitamin D deficiency, unspecified | CPT/HCPCS: 80053; 82306; 82607; 84443; 85025 ==

== ENCOUNTER → 2021-09-18 16:04 | Outpatient (BNVA) | payer MEDICARE, OTHER, SELFPAY | PROVIDERS: PCP Registered Nurse; Visit Provider Registered Nurse | DX: R10.31 Right lower quadrant pain (principal) | CPT/HCPCS: 81000 ==

== ENCOUNTER → 2021-12-11 10:23 | Outpatient (BNVA) | payer MEDICARE, SELFPAY | PROVIDERS: PCP Registered Nurse; Visit Provider Registered Nurse | DX: E87.6 Hypokalemia (principal); R07.9 Chest pain, unspecified; Z82.49 Family history of ischemic heart disease and other diseases of the circulatory system | CPT/HCPCS: 80053 ==

== ENCOUNTER 2021-12-16 19:34 | Emergency (ER) | payer MEDICARE, SELFPAY ==
[2021-12-16 19:39] VITALS: BP 139/71; PULSE 84; RESP 18; TEMP 37; O2SAT 100; BMI 23.0
[2021-12-16 20:15] LABS: Basophils # 0.1 10^3/uL (0.0-0.1); Basophils % 0.9 %; Eosinophils # 0.1 10^3/uL (0.0-0.8); Eosinophils % 1.2 %; Hematocrit 43.8 % (37.0-47.0); Hemoglobin 14.2 g/dL (11.5-15.3); Lymphocytes # 2.5 10^3/uL (0.8-4.8); Lymphocytes % 35.9 %; Mean Corpuscular HGB Conc 32.4 g/dL (30.0-36.0); Mean Corpuscular Hemoglobin 30.5 pg (28.0-34.0); Mean Platelet Volume 11.2 fL (7.4-10.4); Monocytes # 0.7 10^3/uL (0.2-0.9); Monocytes % 9.4 %; Neutrophils # 3.61 10^3/uL (1.8-7.7); Neutrophils % 52.3 %; Nucleated Red Blood Cells % 0 %; Platelet Count 187 10^3/cmm (130-400); Red Blood Count 4.66 10^6/uL (4.1-5.3); Red Cell Distribution Width 13.7 % (12.1-15.1); White Blood Count 6.9 10^3/uL (4.0-10.0)
--- NOTE | 2021-12-16 20:24 | ED_ITS ---
HPI - Neck Pain/Injury General: Chief Complaint: Dizziness Stated Complaint: dizziness Time Seen by Provider: 12/16/21 19:44 Source: patient Mode of arrival: ambulatory Limitations: no limitations History of Present Illness: Patient is a nice 61-year-old female who presents to ED today with a complaint of left-sided neck pain, dizziness, and left otalgia. Patient tells me she has had the left-sided neck pain for approximately 1 to 2 weeks. She has not had any injury or trauma. She feels like her pain is worse with certain movements of her neck but states it is not reproducible to palpation. She states today she noticed fairly acute onset dizziness and left ear pain. She chronically has bilateral tinnitus. She has not noticed any hearing loss. She states upon arrival to the ED dizziness has subsided. She denies headache. She is not having any issues with ambulation. She has not noticed any slurred speech or facial deficits. MD complaint: neck pain Onset (ago): day(s) Place: home Radiation: left lateral Quality: burning and other (reports it feels warm) Duration: constant Relieving factors: none Exacerbating factors: movement of neck Associated symptoms: Reports dizziness (subsided now) and other (L ear pain); Denies difficulty walking, headache(s) or nausea Review of Systems 2 Const: Denies: fever(s), chills, body aches, fatigue or malaise Eyes: Denies: change in vision, blurry vision, blind spots, photophobia, floa ters or seeing flashes ENMT: Reports: ear or mastoid pain and tinnitus (chronic); Denies: throat pain, odynophagia, hoarseness, oral sores, ear discharge, change in hearing, nasal discharge, nasal congestion or sinus pain Card: Denies: chest pain, palpitations, irregular heart rhythm, lightheadedness, syncope or dyspnea on exertion Resp: Denies: dyspnea, productive cough or pain on inspiration GI: Denies: abdominal pain, nausea, vomiting, heartburn or diarrhea : Denies: dysuria Musc: Reports: neck pain; Denies: back pain or joint pain Skin/Breast: Denies: rash Neuro: Reports: dizziness (subsided now); Denies: headache(s), numbness in extremities, weakness in extremities, sensory changes, difficulty walking, frequent falls, confusion, behavioral changes or Slurred speech present [facility] ED PFSH: Medical History Acid reflux Anxiety and depression Chronic constipation Family history of heart disease History of cleft palate Hypothyroid Neuritis of left lower extremity Recurrent UTI S/P extracorporeal shock wave therapy WITH URETERAL STENT PLACEMENT Urgency incontinence Urolithiasis Vitamin D deficiency Surgical History H/O esophagogastroduodenoscopy History of cholecystectomy History of hernia repair History of hysterectomy History of rectal surgery S/P hemorrhoidectomy (10/24/20) Status post colonoscopy (03/13/21) Diverticulosis Family History (Updated 12/11/21 @ 09:29 by Selena Franks LPN) Father , at age 83 Prostate cancer Heart disease Mother Heart disease Diabetes Thyroid disease Hypertension Brother Bladder cancer Heart disease Other Cancer Diverticulitis Myocardial infarct Social History Smoking and tobacco status: former smoker Quit status (tobacco): has quit using tobacco Year quit tobacco: 1982PD x 15 Years Alcohol intake: never Lives independently: Yes Household members: spouse Marital status: Current occupational status: disabled History of recent travel: No (in june) Current gender identity: Female Physical Exam Const: COMMON NORMALS: no acute distress, average body habitus, patient oriented x3, no limitations, healthy appearing, alert and well nourished GENERAL APPEARANCE: cooperative ORIENTATION/CONSCIOUSNESS: Yes awake, Yes oriented to person, Yes oriented to place and Yes oriented to time HENMT: COMMON NORMALS: normocephalic, atraumatic, hearing grossly normal bilaterally, external ears normal, EAC's normal, TM's normal bilaterally, Normal external nose present, oropharynx normal, dentition normal and gingiva normal HEAD & SCALP: normal to inspection, normocephalic and atraumatic FACE & SINUS: normal facial exam NOSE: Normal external nose present EXTERNAL EAR: Yes external ears normal EXTERNAL AUDITORY CANAL: EAC's normal TYMPANIC MEMBRANE: TM's normal bilaterally MOUTH: Normal oral and palatal mucosa present, lip normal and tongue normal THROAT: posterior oropharynx normal Eye: COMMON NORMALS: Equal, round and reactive pupils present, EOMs intact bilaterally and conjunctivae normal GENERAL EYE: appearance normal, both eyes and all related structures and normal light reflex VISUAL [place] OCA: No peripheral vision loss and No central vision loss ALIGNMENT: Yes alignment normal CONJUNCTIVA: Yes conjunctivae normal PUPIL: Yes Equal, round and r eactive pupils present DIRECT OPHTHALMOSCOPY: Yes normal light reflex OTHER: no nystagmus Neck/C-Spine: COMMON NORMALS: no lymphadenopathy and no meningeal signs GENERAL: Yes normal visual inspection, No anterior neck swelling and No submandi bular swelling CAROTIDS: Yes normal carotid upstroke CERVICAL SPINE: Yes pain with cervical ROM, No Cervical spine tenderness, No Paracervical muscle tenderness and No Paracervical spasm Resp: COMMON NORMALS: normal respiratory effort and clear to auscultation bilaterally AUSCULTATION: clear to auscultation bilaterally Cardio: COMMON NORMALS: regular rate and regular rhythm RATE: regular rate RHYTHM: regular rhythm Extremity: COMMON NORMALS: normal to inspection and full ROM GENERAL: Yes normal exam except as noted Neuro: DEO COMA SCALE: document GCS findings [place] coma scale eye opening: Spontaneous Deo coma scale verbal response: Orientated [place] coma scale motor response: Obey commands Deo coma scale total score: 15 COMMON NORMALS: patient oriented x3, CN's II-XII intact bilaterally, moves all extremities, no focal motor deficits and no sensory deficits noted SENSORIUM/ORIENTATION: Yes alert, Yes oriented to person, Yes oriented to place and Yes oriented to time MENINGEAL SIGNS: Yes no meningeal signs CRANIAL NERVES: Yes HiNTS (no nystagmus; no skew present ) COORDINATION/BALANCE: [id number] test normal SPEECH: speech normal COORDINATION: [id number] test normal Skin: COMMON NORMALS: no rashes or lesions noted GENERAL SKIN EXAM: no rashes or lesions noted Course Vital Signs: Vital signs: Vital Signs Temperature 98.6 F 12/16/21 19:39 Pulse Rate 84 12/16/21 19:39 Respiratory Rate 18 12/16/21 19:39 Blood Pressure 139/71 12/16/21 19:39 Pulse Oximetry 100 12/16/21 19:39 MDM - Neck Pain/Injury Medical Decision Making Patient is a 61-year-old female here for left-sided neck pain over the past 1 to 2 weeks as well as an episode of dizziness and left otalgia that began earlier today. Patient states upon arrival to the ED dizziness had subsided and she has not had any further episodes during her stay. Pain to the left side of her neck was worse with certain movements however was not directly reproducible with palpation given her other symptoms I spoke to Dr. Petersen who recommended CTA imaging. This was negative. Patient's vital signs are stable. Her EKG is normal. She has no signs or symptoms of a posterior circulation stroke. We will have patient check her blood pressure at home if she gets any further episodes of dizziness to make sure this is not secondary to hyper/hypotension. Recommend follow-up with her PCP if symptoms persist. Lab Data : 12/16/21 19:56 12/16/21 19:56 Radiology Impressions Head/Neck CTA 12/16/21 20:28 IMPRESSION: 1. No arterial stenosis, occlusion or aneurysm. 2. Trace left mastoid effusion. IMPRESSION: 1. No arterial stenosis, occlusion or dissection. 2. 6 mm right upper lobe pulmonary nodule. For patients at low risk (minimal or absent history of smoking and of other known risk factors), recommend CT Chest at 6-12 months, then consider CT Chest at 18-24 months. For patients at high risk (history of smoking or of other known risk factors), recommend CT Chest at 6-12 months, then CT Chest at 18-24 months. (Reference: Varinder) REFERENCES: 1. Varinder Montgomery, et al. Guidelines for Management of Incidental Pulmonary Nodules Detected on CT Images: From the Fleischner Society 2017. Radiology. 2017;284(1):228-243. 2. NASCET CRITERIA. The degree of internal carotid artery stenosis is based on NASCET criteria. Normal is no stenosis. Mild is less than 50% stenosis. Moderate is 50-69% stenosis. Severe is 70% to 99% stenosis. Total occlusion is no detectable patent lumen. Head CT 12/16/21 20:42 IMPRESSION: No acute intracranial abnormality. Laboratory Results WBC 6.9 10^3/uL (4.0-10.0) 12/16/21 19:56 RBC 4.66 10^6/uL (4.1-5.3) 12/16/21 19:56 Hgb 14.2 g/dL (11.5-15.3) 12/16/21 19:56 Hct 43.8 % (37.0-47.0) 12/16/21 19:56 MCV 94.0 fl (81-99) 12/16/21 19:56 MCH 30.5 pg (28.0-34.0) 12/16/21 19:56 MCHC 32.4 g/dL (30.0-36.0) 12/16/21 19:56 RDW 13.7 % (12.1-15.1) 12/16/21 19:56 Plt Count 187 10^3/cmm (130-400) 12/16/21 19:56 MPV 11.2 fL (7.4-10.4) H 12/16/21 19:56 Neut % (Auto) 52.3 % 12/16/21 19:56 Lymph % (Auto) 35.9 % 12/16/21 19:56 Bacon % (Auto) 9.4 % 12/16/21 19:56 Eos % (Auto) 1.2 % 12/16/21 19:56 Baso % (Auto) 0.9 % 12/16/21 19:56 Neut # (Auto) 3.61 10^3/uL (1.8-7.7) 12/16/21 19:56 Lymph # (Auto) 2.5 10^3/uL (0.8-4.8) 12/16/21 19:56 Bacon # (Auto) 0.7 10^3/uL (0.2-0.9) 12/16/21 19:56 Eos # (Auto) 0.1 10^3/uL (0.0-0.8) 12/16/21 19:56 Baso # (Auto) 0.1 10^3/uL (0.0-0.1) 12/16/21 19:56 Nucleated RBC % (auto) 0 % 12/16/21 19:56 Nucleated RBCs # 0.0 /100WBC 12/16/21 19:56 Sodium 141 mmol/L (136-145) 12/16/21 19:56 Potassium 3.3 mmol/L (3.5-5.1) L 12/16/21 19:56 Chloride 102 mmol/L (98-107) 12/16/21 19:56 Carbon Dioxide 23 mmol/L (22-29) 12/16/21 19:56 Anion Gap 19.3 (5-19) H 12/16/21 19:56 BUN 15 mg/dL (8-23) 12/16/21 19:56 Creatinine 0.8 mg/dL (0.5-0.9) 12/16/21 19:56 GFR Calculation 72.7 mL/min (90-130) L 12/16/21 19:56 Glucose 96 mg/dL (65-115) 12/16/21 19:56 Calculated Osmolality 293 mOsm/kg (285-295) 12/16/21 19:56 Calcium 9.7 mg/dL (8.5-10.5) 12/16/21 19:56 Discharge Plan Discharge Patient Disposition: Home Clinical Impression: Dizziness, Neck pain on left side Condition: Stable Prescriptions: No Action budesonide-formoterol [Symbicort] 80-4.5 mcg/actuation HFA aerosol inhaler 1 puff inhalation .COMPLEX Qty: 10.2 3RF Rx Instructions: 1 puff inhalation; as needed up to 8 times a day levothyroxine [Synthroid] 100 mcg tablet 100 mcg PO DAILY Qty: 90 4RF Rx Instructions: TAKE 1 TABLET BY MOUTH DAILY cholecalciferol (vitamin D3) 1,250 mcg (50,000 unit) tablet 1,250 mcg PO .once a week 90 Days Qty: 12 0RF albuterol sulfate 90 mcg/actuation HFA aerosol inhaler See Rx Instructions .ROUTE .COMPLEX Qty: 6.7 0RF Dose Instruction: INHALE 2 PUFFS BY MOUTH EVERY 8 HOURS NEEDED FOR SHORTNESS OF BREATH OR WHEEZING Rx Instructions: INHALE 2 PUFFS BY MOUTH EVERY 8 HOURS NEEDED FOR SHORTNESS OF BREATH OR WHEEZING Discharge Orders: Discharge ED (Routine); Ordered 12/16/21 Ordered By: Landy Barron Referrals: Asuncion Barahona, OTHER SPORTS COACH OR INSTRUCTOR [Primary Care Provider] - Activity Restrictions/Additional Instructions: As we discussed if your dizziness returns, check your blood pressure to make sure it is not low. You may also try [id number] meclizine to see if this will help alleviate symptoms. Please follow-up with your primary care provider for further evaluation for the left-sided neck pain and if dizziness persists. Coding Level of Care Code ED Sole Stainer for Chg Fwd Exam Comprehensive
--- NOTE | 2021-12-16 20:28 | CTR_ITS ---
PROCEDURE INFORMATION: Exam: CT Angiography Head With Contrast, Arteriography Exam date and time: 12/16/2021 8:28 PM Age: 61 years old Clinical indication: Dizziness and giddiness; Patient HX: Dizziness with exacerbation upon moving head side to side. ; Additional info: L sided neck pain, dizziness, L otalgia TECHNIQUE: Imaging protocol: Computed tomography angiography of the head with contrast. Exam focused on the arteries. 3D rendering (Not supervised by radiologist): MIP and/or 3D reconstructed images were created by the technologist. Radiation optimization: All CT scans at this facility use at least one of these dose optimization techniques: automated exposure control; mA and/or kV adjustment per patient size (includes targeted exams where dose is matched to clinical indication); or iterative reconstruction. Contrast material: OMNI 350; Contrast volume: 95 ml; Contrast route: INTRAVENOUS (IV); COMPARISON: CT head wo con* [id number] 12/16/2021 8:52 PM RADIATION DOSE METRICS: Total DLP (mGy-cm): 1417.96 FINDINGS: ANTERIOR CIRCULATION: Right internal carotid artery: There is subtle focal ectasia of the right supraclinoid internal carotid artery at the origin of the posterior communicating artery. See series 4, image 189 and 188. The right internal carotid artery is otherwise normal. Right middle cerebral artery: Unremarkable. No occlusion or significant stenosis. No aneurysm. Right anterior cerebral artery: Unremarkable. No occlusion or significant stenosis. No aneurysm. Left internal carotid artery: Unremarkable. Intracranial segment is patent with no significant stenosis. No aneurysm. Left middle cerebral artery: Unremarkable. No occlusion or significant stenosis. No aneurysm. Left anterior cerebral artery: Unremarkable. No occlusion or significant stenosis. No aneurysm. POSTERIOR CIRCULATION: Right vertebral artery: Unremarkable. No occlusion or significant stenosis. No aneurysm. Left vertebral artery: Hypoplastic left vertebral artery terminates in the posteroinferior cerebellar artery and does not contribute to the basilar artery. Basilar artery: Unremarkable. No occlusion or significant stenosis. No aneurysm. Right posterior cerebral artery: Unremarkable. No occlusion or significant stenosis. No aneurysm. Left posterior cerebral artery: Unremarkable. No occlusion or significant stenosis. No aneurysm. Veins: Dural venous sinuses are patent. Brain: No definite mass, mass effect, or midline shift. Cerebral ventricles: No ventriculomegaly. Bones/joints: The calvarium is intact. Mastoid air cells: Trace left mastoid effusion. Right mastoid air cells are clear. Middle ears are clear. Soft tissues: The visible extracranial soft tissues are unremarkable. Paranasal sinuses: The paranasal sinuses are clear. 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 PROCEDURE INFORMATION: Exam: CT Angiography Neck With Contrast Exam date and time: 12/16/2021 8:28 PM Age: 61 years old Clinical indication: Dizziness and giddiness; Patient HX: Dizziness with exacerbation upon moving head side to side. ; Additional info: L sided neck pain, dizziness, L otalgia TECHNIQUE: Imaging protocol: Computed tomography angiography of the neck with contrast. 3D rendering (Not supervised by radiologist): MIP and/or 3D reconstructed images were created by the technologist. Radiation optimization: All CT scans at this facility use at least one of these dose optimization techniques: automated exposure control; mA and/or kV adjustment per patient size (includes targeted exams where dose is matched to clinical indication); or iterative reconstruction. Contrast material: OMNI 350; Contrast volume: 95 ml; Contrast route: INTRAVENOUS (IV); COMPARISON: CT head wo con* [id number] 12/16/2021 8:52 PM RADIATION DOSE METRICS: Total DLP (mGy-cm): 1417.96 FINDINGS: Right common carotid artery: No stenosis. No dissection or occlusion. Right internal carotid artery: No stenosis of the extracranial segment. No dissection or occlusion. Right external carotid artery: No occlusion or stenosis of the origin. Left common carotid artery: No stenosis. No dissection or occlusion. Left internal carotid artery: No stenosis of the extracranial segment. No dissection or occlusion. Left external carotid artery: No occlusion or stenosis of the origin. Right vertebral artery: No stenosis. No dissection or occlusion. Left vertebral artery: No stenosis. No dissection or occlusion. Soft tissues: Normal. No significant soft tissue swelling. Bones/joints: No acute fracture. Multilevel disc findings: There is mild degenerative disc disease in the cervical spine. Lungs: There is a noncalcified pulmonary nodule in the right upper lobe visible on series 4, image [address]/CT angio headneck* [id number] IMPRESSION: 1. No arterial stenosis, occlusion or aneurysm. 2. Trace left mastoid effusion. IMPRESSION: 1. No arterial stenosis, occlusion or dissection. 2. 6 mm right upper lobe pulmonary nodule. For patients at low risk (minimal or absent history of smoking and of other known risk factors), recommend CT Chest at 6-12 months, then consider CT Chest at 18-24 months. For patients at high risk (history of smoking or of other known risk factors), recommend CT Chest at 6-12 months, then CT Chest at 18-24 months. (Reference: Varinder) REFERENCES: 1. Varinder Montgomery, et al. Guidelines for Management of Incidental Pulmonary Nodules Detected on CT Images: From the Fleischner Society 2017. Radiology. 2017;284(1):228-243. 2. NASCET CRITERIA. The degree of internal carotid artery stenosis is based on NASCET criteria. Normal is no stenosis. Mild is less than 50% stenosis. Moderate is 50-69% stenosis. Severe is 70% to 99% stenosis. Total occlusion is no detectable patent lumen.
[2021-12-16 20:41] LABS: Anion Gap 19.3 (5-19); Blood Urea Nitrogen 15 mg/dL (8-23); Calcium 9.7 mg/dL (8.5-10.5); Carbon Dioxide 23 mmol/L (22-29); Chloride 102 mmol/L (98-107); Glomerular Filtration Rate 72.7 mL/min (90-130); Glucose 96 mg/dL (65-115); Osmolality Calculated 293 mOsm/kg (285-295); Potassium 3.3 mmol/L (3.5-5.1); Sodium 141 mmol/L (136-145)
--- NOTE | 2021-12-16 20:42 | CTR_ITS ---
PROCEDURE INFORMATION: Exam: CT Head Without Contrast Exam date and time: 12/16/2021 8:42 PM Age: 61 years old Clinical indication: Patient HX: Dizziness with exacerbation upon moving head side to side. ; Additional info: Needs for cta imaging TECHNIQUE: Imaging protocol: Computed tomography of the head without contrast. Radiation optimization: All CT scans at this facility use at least one of these dose optimization techniques: automated exposure control; mA and/or kV adjustment per patient size (includes targeted exams where dose is matched to clinical indication); or iterative reconstruction. COMPARISON: No relevant prior studies available. RADIATION DOSE METRICS: Total DLP (mGy-cm): 714.75 FINDINGS: Brain: The brain is unremarkable. There is no mass effect or significant white matter disease. There is no acute intracranial hemorrhage. Cerebral ventricles: There is no significant ventricular dilation. The basal cisterns are unremarkable. Paranasal sinuses: The paranasal sinuses are clear. Mastoid air cells: The mastoid air cells are clear. Bones/joints: The calvarium is intact. Soft tissues: The visible extracranial soft tissues are unremarkable. CT/CT head wo con* [id number] IMPRESSION: No acute intracranial abnormality.
[2021-12-16] MEDS: iohexol 350 mg/mL 100 mL Btl IV (21:01)
--- NOTE | 2021-12-16 21:30 | ECG_ITS ---
[facility] Test Date: 2021-12-16 Pat Name: Evelin Roberts Department: Room: Gender: Female Chain Mender: : 1960 Requested By: Landy Barron Order Number: [id number] John MD: Yesica Snyder M.D. Measurements Intervals [place] Rate: 85 P: 58 SD: 181 QRS: 42 QRSD: 84 T: 28 QT: 362 QTc: 431 Interpretive Statements SINUS RHYTHM No previous ECG available for comparison Electronically Signed On 12-17-2021 23:18:29 OWNER OPERATOR by Yesica Snyder M.D. [id number]
[2021-12-16 22:16] VITALS: BP 110/63; PULSE 75; RESP 16; O2SAT 96
== END 2021-12-16 22:17 | disposition home or self-care (01) ==
PROVIDERS: Emergency Medicine; Emergency Provider Physician Assistant; PCP Registered Nurse
DX: M54.2 Cervicalgia (principal); R42 Dizziness and giddiness
CPT/HCPCS: 70450; 70496; 70498; 80048; 85025; 93005; 99283; Q9967

== ENCOUNTER 2022-01-01 12:02 | Outpatient (CLI) | payer MEDICARE, SELFPAY ==
--- NOTE | 2022-01-01 14:00 | XR_ITS ---
WS: [id number] KUB, AP view, 01/01/2022 Clinical Data: urolithiasis Comparison: KUB, 06/02/2021. Findings: No abnormal intraabdominal masses or calcifications are seen. There is no dilatated small bowel or ev idence of obstruction. There are clips in the right upper quadrant from a cholecystectomy. There is a moderate amount of fec al material throughout the colon. XR/XR KUB [id number] Impression: Negative KUB.
== END 2022-01-01 12:03 | disposition home or self-care (01) ==
PROVIDERS: PCP Registered Nurse; Visit Provider Urology
DX: N20.9 Urinary calculus, unspecified (principal)
CPT/HCPCS: 74018; 81003

== ENCOUNTER → 2022-01-22 13:04 | Outpatient (BNVA) | payer MEDICARE, SELFPAY | PROVIDERS: PCP Registered Nurse; Visit Provider Internal Medicine | DX: R07.9 Chest pain, unspecified (principal); R06.02 Shortness of breath; R06.00 Dyspnea, unspecified; Z87.891 Personal history of nicotine dependence | CPT/HCPCS: 99204 ==

== ENCOUNTER → 2022-02-05 08:35 | Outpatient (BNVA) | payer MEDICARE, SELFPAY | PROVIDERS: PCP Registered Nurse; Visit Provider Registered Nurse | DX: E87.6 Hypokalemia (principal); E03.9 Hypothyroidism, unspecified | CPT/HCPCS: 80048; 84443 ==

== ENCOUNTER 2022-04-06 09:34 | Outpatient (CLI) | payer MEDICARE, SELFPAY ==
--- NOTE | 2022-04-06 09:44 | FL_ITS ---
WS: [id number] FL barium swallow [id number] REASON FOR EXAM: DYSPHAGIA/GERD FLUOROSCOPY TIME: 1min [id number] # OF SPOT FILMS: 8 FINDINGS: Swallowing of barium was evaluated from the oropharynx to the stomach. Patient was evaluated in the upright and prone MOORE positions. Normal peristalsis. No intrinsic or extrinsic narrowing of the esophagus. Small transient hiatal hernia without significant reflux. FL/FL barium swallow [id number] IMPRESSION: No significant abnormality identified.
--- NOTE | 2022-04-06 09:44 | FL_ITS ---
WS: [email or web address] FL barium swallow modifd [id number] REASON FOR EXAM: Other dysphagia FLUOROSCOPY TIME: 2min [id number] # OF SPOT FILMS: 0 FINDINGS: Patient was examined in the sitting upright position. The swallowing of barium of variable consistenc ies was fluoroscopically evaluated and recorded. A detailed report of the swallowing will be rendered by the speech therapy department. No gross abnormalities were identified. FL/FL barium swallow modifd [id number] IMPRESSION: Detailed report of swallowing pending.
== END 2022-04-06 09:35 | disposition home or self-care (01) ==
PROVIDERS: PCP Registered Nurse; Visit Provider Otolaryngology
DX: K21.9 Gastro-esophageal reflux disease without esophagitis (principal); R13.12 Dysphagia, oropharyngeal phase
CPT/HCPCS: 74220; 74230; 92611

== ENCOUNTER 2022-04-10 07:55 | Outpatient (CLI) | payer MEDICARE, SELFPAY ==
--- NOTE | 2022-04-10 09:15 | USCV_ITS ---
Alejandra Evelin Age: 61 Gender: F : 1960 Exam Date: 04/10/2022 08:28 Ordering Phys: Bryan Anaya M.D ([email or web address]) Technologist: Tyra Hopson Exam Location: [facility] [place] Indication: Chest Pain BP: 114 / 70 HR: 74 Rhythm: Sinus Technical Quality: Adequate MEASUREMENTS (Male / Female) Normal Values 2D ECHO LV Diastolic Diameter PLAX 3.6 cm 4.2 - 5.9 / 3.9 - 5.3 cm LV Systolic Diameter PLAX 1.6 cm LV Chamber Size 3.1 cm IVS Diastolic Thickness 1.1 cm 0.6 - 1.0 / 0.6 - 0.9 cm IVS Systolic Thickness 1.2 cm LVPW Diastolic Thickness 1.2 cm 0.6 - 1.0 / 0.6 - 0.9 cm LVPW Systolic Thickness 1.5 cm RV Chamber Size 2.9 cm LVOT Diameter 2.0 cm LV Ejection Fraction 2D Teich 86.5 % LV Ejection Fraction MOD 2C 79.8 % LV Ejection Fraction 2C AL 80.9 % LA Diameter 3.1 cm LA Width 2.5 cm LA Height 2.9 cm RA Width 2.8 cm RA Height 2.8 cm Aorta at Sinotubular Diameter 2.5 cm IVC Diameter 1.3 cm M-MODE Aortic Annulus Diameter 3.6 cm LA Ao Ratio MM 1.0 MV E Point Septal Separation 0.6 cm DOPPLER AV Peak Velocity 110.0 cm/s LVOT Peak Velocity 93.0 cm/s AV Area Cont Eq vti 3.1 cm squared AV Area Cont Eq pk 2.8 cm squared MV Area PHT 3.3 cm squared Mitral E to A Ratio 1.0 MV E' Velocity 44.0 cm/s Mitral E to MV E' Ratio 8.4 Mitral E to LV E' Lateral Ratio 9.1 Mitral E to LV E' Septal Ratio 7.9 TR Peak Velocity 248.8 cm/s TR Peak Gradient 24.8 mmHg TR Mean Velocity 183.5 cm/s TR Mean Gradient 15.5 mmHg TR Velocity Time Integral 84.6 cm TV Peak E Velocity 74.0 cm/s PV Peak Velocity 59.0 cm/s RV Acceleration Time 0.1 s RV Ejection Time 0.3 s RV AcT/ET 0.3 FINDINGS Left Ventricle Normal left ventricular size. LV systolic function is normal with EF of 55-60%. No regional wall motion abnormalities. Diastolic function is normal Right Ventricle The right ventricle is normal in size and function. Right Atrium The right atrium is normal in size. Left Atrium The left atrium is normal in size. Mitral Valve Possible mitral valve prolapse is seen. There is mild mitral regurgitation. Aortic Valve Structurally normal aortic valve without significant sclerosis or stenosis. There is no aortic regurgitation. Tricuspid Valve Structurally normal tricuspid valve without significant stenosis. Mild to moderate tricuspid regurgitation. Pulmonary artery systolic pressure is normal. Pulmonic Valve Not well visualized Pericardium Normal pericardium without effusion. Aorta Normal ascending aorta dimension. IVC CONCLUSIONS LV systolic function is normal with EF of 55-60% Diastolic function is normal Possible mitral valve prolapse is seen. Mild mitral regurgitation Mild to moderate tricuspid regurgitation Compared to prior echocardiogram from 12/28/2018, no significant change is seen Bryan Anaya MD (Electronically Signed) Final Date: 20 April 2022 19:04 S
== END 2022-04-10 07:56 | disposition home or self-care (01) ==
LOC: RAD 07:56
PROVIDERS: PCP Registered Nurse; Visit Provider Internal Medicine
DX: R07.9 Chest pain, unspecified (principal)
CPT/HCPCS: 93306

== ENCOUNTER → 2022-04-30 09:59 | Outpatient (BNVA) | payer MEDICARE, SELFPAY | PROVIDERS: PCP Registered Nurse; Visit Provider Registered Nurse | DX: E03.9 Hypothyroidism, unspecified (principal) | CPT/HCPCS: 84439; 84443; 84481 ==

== ENCOUNTER → 2022-05-06 08:30 | Outpatient (BNVA) | payer MEDICARE, SELFPAY | PROVIDERS: PCP Registered Nurse; Visit Provider Surgery | DX: R10.13 Epigastric pain (principal); K42.9 Umbilical hernia without obstruction or gangrene | CPT/HCPCS: 99214 ==

== ENCOUNTER → 2022-05-27 14:24 | Outpatient (BNVA) | payer MEDICARE, SELFPAY | PROVIDERS: PCP Registered Nurse; Visit Provider Internal Medicine | DX: R07.9 Chest pain, unspecified (principal); R06.00 Dyspnea, unspecified | CPT/HCPCS: 99213; 99214 ==

== ENCOUNTER 2022-06-03 05:58 | Day surgery (SDC) | payer MEDICARE, SELFPAY ==
[2022-06-01 10:50] VITALS: BMI 20.9
[2022-06-03 06:24] VITALS: BP 135/62; PULSE 65; RESP 18; TEMP 36.2; O2SAT 98
[2022-06-03] MEDS: sodium chloride 0.9% 1,000 ML 30 ML IV (06:29)
--- NOTE | 2022-06-03 06:50 | ANES.PREANE2 ---
Pre-Anesthetic Assessment Height/Weight: Height 1.6 m Weight 53.524 kg Temp Pulse Resp BP Pulse Ox O2 Del Method 97.1 F L 65 18 135/62 98 06/03/22 06:24 06/03/22 06:24 06/03/22 06:24 06/03/22 06:24 06/03/22 06:24 06/03/22 06:24 Preop Diagnosis: diagnostic Operation Date: 06/03/22 07:30 Proposed Procedures p EGD(Not Applicable) - Sahil Gracia DO Familial anesthetic complications: PONV Was Beta Lauren taken within 24 hours: N/A Was Clonidine taken within 24 hours: N/A Last intake: Intake Last Liquid Date 06/02/22 Last Liquid Time 20:00 Last Solid Date 06/02/22 Last Solid Time 19:00 Last Intake: 20:00 Social No alcohol and No tobacco Exam alert, oriented x 3, clear to auscultation bilaterally and regular rate & rhythm Airway Submandibular: within normal limits Cervical ROM: within normal limits Mallampati: Class I Dentition: partials (upper) Pulmonary None reported CV/HEM None reported mild MR None reported Hepatic None reported GI Gastroesophageal Reflux Disease Metabolic Thyroid Disease (t) thyrostim OTC Musc/skel Lower Back Pain Neuropsych None reported Anesthetic Plan ASA status: 2 Anesthesia: MAC Risk of > 500 ml blood loss (7ml/kg in children): No Medications/Allergies Home Medications Medication Instructions Recorded Confirmed Last Taken Type amino acids 2 cap PO DAILY 06/03/22 06/03/22 06/02/22 History Allergies Allergy/AdvReac Type Severity Reaction Status Date / Time meperidine [From Demerol] Allergy Severe ADR/ALGY-Hy Verified 06/01/22 10:47 potension naproxen [From Aleve] Allergy Severe ADR/ALGY-Pa Verified 06/01/22 10:47 lpitations ciprofloxacin [From Cipro] Allergy Nausea, Verified 06/01/22 10:47 Chest tightness methylprednisolone Allergy Edema Verified 06/01/22 10:47 [From Depo-Medrol] codeine AdvReac Severe ADR-Halluci Verified 06/01/22 10:47 nating sulfamethoxazole AdvReac ADR-Anxiety Verified 06/01/22 10:47 [From Bactrim] trimethoprim [From Bactrim] AdvReac ADR-Anxiety Verified 06/01/22 10:47 Current Medications Generic Name Dose Route Start Last Admin Trade Name Geovanni PRN Reason Stop Dose Admin Sodium Chloride 1,000 mls @ 30 mls/hr 06/03/22 06:15 06/03/22 06:29 Sodium Chloride 0.9% IV 06/04/22 06:14 30 mls/hr .Q24H ELY Administration PFSH Anesthesia Medical History Acid reflux Anxiety and depression Chronic constipation Family history of heart disease History of cleft palate Hypothyroid Neuritis of left lower extremity Recurrent UTI Urgency incontinence Urolithiasis Vitamin D deficiency Surgical History H/O esophagogastroduodenoscopy History of cholecystectomy History of hernia repair History of hysterectomy History of rectal surgery S/P extracorporeal shock wave therapy WITH URETERAL STENT PLACEMENT S/P hemorrhoidectomy (10/24/20) Status post colonoscopy (03/13/21) Diverticulosis Family History Father , at age 83 Prostate cancer Heart disease Mother Heart disease Diabetes Thyroid disease Hypertension Brother Bladder cancer Heart disease Other Cancer Diverticulitis Myocardial infarct Social History Smoking and tobacco status: former smoker Quit status (tobacco): has quit using tobacco Year quit tobacco: 1982 - PD x 15 Years Alcohol intake: never Lives independently: Yes Household members: spouse Marital status: Current occupational status: disabled History of recent travel: No (in june) Current gender identity: Female Data Anesthesia Cardiac Studies: Echocardiogram 04/10/22
--- NOTE | 2022-06-03 06:58 | W.PM.OPSUD ---
Surgery/Procedure H&P Update DATE OF PROCEDURE: June 03, 2022 DATE H&P PERFORMED: 05/06/22 PREOP DIAGNOSIS: diagnostic PLANNED PROCEDURE: Operation Date: 06/03/22 07:30 Proposed Procedures p EGD(Not Applicable) - Sahil Gracia DO
[2022-06-03 07:45] VITALS: BP 100/56; PULSE 69; RESP 18; TEMP 36.4; O2SAT 100
--- NOTE | 2022-06-03 07:49 | ANE.PACU2 ---
Inpatient post-anesthesia follow up: Airway intact: Yes Vital signs: Temperature 97.1 F Pulse Rate 65 Respiratory Rate 18 Blood Pressure 135/62 Pulse Oximetry 98 Oxygen Delivery Me thod Room Air Oxygen Flow Rate Fraction of Inspir ed Oxygen Hydration adequate: Yes Nausea and vomiting: No Pain level: 1 Mental status: Baseline
[2022-06-03 07:55] VITALS: BP 103/64; PULSE 69; RESP 18; TEMP 36.5; O2SAT 100
== END 2022-06-03 08:21 | disposition home or self-care (01) ==
PROVIDERS: PCP Registered Nurse; Visit Provider Surgery
PROC: 0DJ08ZZ Inspection of Upper Intestinal Tract, Via Natural or Artificial Opening Endoscopic (ICD-10-PCS; CPT 43235; principal; 2022-06-03 07:30)
DX: K21.9 Gastro-esophageal reflux disease without esophagitis (principal); K22.10 Ulcer of esophagus without bleeding; K29.50 Unspecified chronic gastritis without bleeding; B96.81 Helicobacter pylori [H. pylori] as the cause of diseases classified elsewhere; Z80.0 Family history of malignant neoplasm of digestive organs
CPT/HCPCS: 43239; 88305; J2704; J7030

== ENCOUNTER → 2022-06-17 13:29 | Outpatient (BNVA) | payer MEDICARE, SELFPAY | PROVIDERS: PCP Registered Nurse; Visit Provider Surgery | DX: Z09 Encounter for follow-up examination after completed treatment for conditions other than malignant neoplasm (principal) | CPT/HCPCS: 99212 ==

== ENCOUNTER 2022-06-18 05:21 | Day surgery (SDC) | payer MEDICARE, SELFPAY ==
[2022-06-17 10:23] VITALS: BMI 20.5
[2022-06-18] VITALS (13 sets, daily range): BP systolic 110–138; BP diastolic 56–79; PULSE 59–95; RESP 12–20; TEMP 36.4–36.8; O2SAT 92–100
--- NOTE | 2022-06-18 06:34 | ANES.PREANE2 ---
Pre-Anesthetic Assessment Height/Weight: Height 1.6 m Weight 52.617 kg Temp Pulse Resp BP Pulse Ox O2 Del Method 98.2 F 59 L 18 138/64 100 06/18/22 06:03 06/18/22 06:03 06/18/22 06:03 06/18/22 06:03 06/18/22 06:03 06/18/22 06:04 Preop Diagnosis: umbilical hernia Operation Date: 06/18/22 07:00 Proposed Procedures p Laparoscopic Ventral Hernia Repair w/ Mesh 93855,K42.9(Not Applicable) - Sahil Gracia DO Familial anesthetic complications: None Was Beta Lauren taken within 24 hours: N/A Was Clonidine taken within 24 hours: N/A Last intake: Intake Last Liquid Date 06/17/22 Last Liquid Time 20:00 Last Solid Date 06/17/22 Last Solid Time 16:30 Social No alcohol and No tobacco former smoker Exam alert, oriented x 3, clear to auscultation bilaterally and regular rate & rhythm Airway Mallampati: Class I Dentition: partials CV/HEM mitral valve prolapse GI Gastroesophageal Reflux Disease Metabolic Thyroid Disease Anesthetic Plan ASA status: 2 Anesthesia: General Risk of > 500 ml blood loss (7ml/kg in children): No Medications/Allergies Home Medications Medication Instructions Recorded Confirmed Last Taken Type amino acids 2 cap PO DAILY 06/03/22 06/17/22 06/02/22 History amoxicillin 500 mg capsule 1,000 mg PO BID 14 days #56 caps 06/17/22 06/17/22 Unknown Rx clarithromycin 500 mg tablet 500 mg PO BID 14 days #28 tabs 06/17/22 06/17/22 Unknown Rx pantoprazole 40 mg tablet,delayed 40 mg PO BID 14 days #28 tabs 06/17/22 06/18/22 06/17/22 Rx release (Protonix) Allergies Allergy/AdvReac Type Severity Reaction Status Date / Time meperidine [From Demerol] Allergy Severe ADR/ALGY-Hy Verified 06/17/22 13:56 potension naproxen [From Aleve] Allergy Severe ADR/ALGY-Pa Verified 06/17/22 13:56 lpitations ciprofloxacin [From Cipro] Allergy Nausea, Verified 06/17/22 13:56 Chest tightness methylprednisolone Allergy Edema Verified 06/17/22 13:56 [From Depo-Medrol] codeine AdvReac Severe ADR-Halluci Verified 06/17/22 13:56 nating sulfamethoxazole AdvReac ADR-Anxiety Verified 06/17/22 13:56 [From Bactrim] trimethoprim [From Bactrim] AdvReac ADR-Anxiety Verified 06/17/22 13:56 [facility] Anesthesia Medical History Acid reflux Anxiety and depression Chronic constipation Family history of heart disease History of cleft palate Hypothyroid Neuritis of left lower extremity Recurrent UTI Urgency incontinence Urolithiasis Vitamin D deficiency Surgical History H/O esophagogastroduodenoscopy History of cholecystectomy History of hernia repair History of hysterectomy History of rectal surgery S/P extracorporeal shock wave therapy WITH URETERAL STENT PLACEMENT S/P hemorrhoidectomy (10/24/20) Status post colonoscopy (03/13/21) Diverticulosis Family History Father , at age 83 Prostate cancer Heart disease Mother Heart disease Diabetes Thyroid disease Hypertension Brother Bladder cancer Heart disease Other Cancer Diverticulitis Myocardial infarct Social History Smoking and tobacco status: never smoked Quit status (tobacco): has quit using tobacco Year quit tobacco: 1982 - PD x 15 Years Alcohol intake: never Lives independently: Yes Household members: spouse Marital status: Current occupational status: disabled History of recent travel: No (in june) Current gender identity: Female Data Anesthesia Cardiac Studies: Echocardiogram 04/10/22
[2022-06-18] MEDS: sodium chloride 0.9% 1,000 ML 30 ML IV (06:40)
--- NOTE | 2022-06-18 06:53 | P.HP_ITS ---
Providers/Chief Complaint Primary Care Provider: ELKE Swan Chief Complaint: UMBILICAL HERNIA History of Present Illness Evelin Roberts is a 61 year old female presents for laparoscopic repair of umbilical hernia with mesh Medications/Allergies Home Medications Medication Instructions Recorded Confirmed Last Taken Type amino acids 2 cap PO DAILY 06/03/22 06/17/22 06/02/22 History amoxicillin 500 mg capsule 1,000 mg PO BID 14 days #56 caps 06/17/22 06/17/22 Unknown Rx clarithromycin 500 mg tablet 500 mg PO BID 14 days #28 tabs 06/17/22 06/17/22 Unknown Rx pantoprazole 40 mg tablet,delayed 40 mg PO BID 14 days #28 tabs 06/17/22 06/18/22 06/17/22 Rx release (Protonix) Allergies Allergy/AdvReac Type Severity Reaction Status Date / Time meperidine [From Demerol] Allergy Severe ADR/ALGY-Hy Verified 06/17/22 13:56 potension naproxen [From Aleve] Allergy Severe ADR/ALGY-Pa Verified 06/17/22 13:56 lpitations ciprofloxacin [From Cipro] Allergy Nausea, Verified 06/17/22 13:56 Chest tightness methylprednisolone Allergy Edema Verified 06/17/22 13:56 [From Depo-Medrol] codeine AdvReac Severe ADR-Halluci Verified 06/17/22 13:56 nating sulfamethoxazole AdvReac ADR-Anxiety Verified 06/17/22 13:56 [From Bactrim] trimethoprim [From Bactrim] AdvReac ADR-Anxiety Verified 06/17/22 13:56 PFSH Acute PFSH: Medical History Acid reflux Anxiety and depression Chronic constipation Family history of heart disease History of cleft palate Hypothyroid Neuritis of left lower extremity Recurrent UTI Urgency incontinence Urolithiasis Vitamin D deficiency Surgical History H/O esophagogastroduodenoscopy History of cholecystectomy History of hernia repair History of hysterectomy History of rectal surgery S/P extracorporeal shock wave therapy WITH URETERAL STENT PLACEMENT S/P hemorrhoidectomy (10/24/20) Status post colonoscopy (03/13/21) Diverticulosis Family History Father , at age 83 Prostate cancer Heart disease Mother Heart disease Diabetes Thyroid disease Hypertension Brother Bladder cancer Heart disease Other Cancer Diverticulitis Myocardial infarct Social History Smoking and tobacco status: never smoked Quit status (tobacco): has quit using tobacco Year quit tobacco: 1982 - 1PPD x 15 Years Alcohol intake: never Lives independently: Yes Household members: spouse Marital status: Current occupational status: disabled History of recent travel: No (in june) Current gender identity: Female Vitals/I&O/Wt Last Vital Signs Temp 98.2 F 06/18/22 06:03 Pulse 59 L 06/18/22 06:03 Resp 18 06/18/22 06:03 BP 138/64 06/18/22 06:03 Pulse Ox 100 06/18/22 06:03 O2 Del Method 06/18/22 06:04 Weight last 48 hrs Weight 116 lb A&P Assessment and plan (1) Umbilical hernia: Status: Acute Plan laparoscopic repair of umbilical hernia with mesh Attestations Medical Necessity Statement*: Will go home Coding Level of Care Code Acute Veterinary Virus Serum Inspector for g Fwabdelrahman Diagnoses Umbilical hernia K42.9
[2022-06-18] MEDS: ceFAZolin 2,000 MG in sodium chloride 0.9% (plus) 50 ML 100 MG IV (06:59)
--- NOTE | 2022-06-18 07:50 | PM.OP ---
Operative Report Date of procedure: June 18, 2022 Pre-op diagnosis: Preop Diagnosis umbilical hernia Post-op diagnosis: same Procedure done: Laparoscopic umbilical hernia repair with mesh Implants: 11 cm ventral light mesh Specimens removed/disposition: Hernia sac Surgeon: Dr. Sahil Gracia DO Anesthesia: General Estimated blood loss (mL): 5 Complications: None apparent Brief History: Patient with a symptomatic umbilical hernia desired repair Procedure: Patient was wheeled into the operative room and placed on the OR table in a supine position. Abdomen was inspected prepped and draped in usual sterile fashion. Time-out was performed and all present were in agreement. A 15 blade scalp was used to make a 5 millimeter incision left upper quadrant. A Veress needle was placed into the incision and intra-abdominal insufflation was brought to 15 millimeters of mercury. A 2nd 5 millimeter trocar was placed into the left lower quadrant. The energy but device was then used to cut out the hernia sac. An 11 centimeter mesh was placed into the abdomen and brought up through the umbilicus using the skeleton. The mesh was then tacked in place in a double crown fashion. The hernia sac was then removed from the abdomen via the left lower quadrant. The skeleton was removed from the mesh. The left lower quadrant port site was closed with an 0 Vicryl suture in a Ozzy-Mila in a [id number]-bp-[id number] fashion. Incisions were closed with 4 O Vicryl in a subcuticular interrupted fashion. Skin glue was applied. Patient tolerated the procedure well.
[2022-06-18] MEDS: fentaNYL 50 mcg/mL INJ 2mL IVP ×2 (08:02→08:17)
--- NOTE | 2022-06-18 08:05 | P.PCN_ITS ---
PACU note Narrative: VSS, Good respiratory effort, report to POWDER SHOVELER Exam: awake
--- NOTE | 2022-06-18 08:05 | PM.PACU ---
PACU note Narrative: VSS, Good respiratory effort, report to DIRECTOR ATHLETIC Exam: awake
[2022-06-18] MEDS: ibuprofen 800 mg tablet PO (09:24)
== END 2022-06-18 10:13 | disposition home or self-care (01) ==
PROVIDERS: PCP Registered Nurse; Visit Provider Surgery
PROC: 0WQF4ZZ Repair Abdominal Wall, Percutaneous Endoscopic Approach (ICD-10-PCS; CPT 49652; principal; 2022-06-18 07:00)
DX: K42.9 Umbilical hernia without obstruction or gangrene (principal); K21.9 Gastro-esophageal reflux disease without esophagitis; Z87.891 Personal history of nicotine dependence; Z88.2 Allergy status to sulfonamides
CPT/HCPCS: 49652; 88302; C1781; J1100; J2405; J2704; J2710; J3010; J3490; J7030

== ENCOUNTER → 2022-06-30 08:41 | Outpatient (BNVA) | payer MEDICARE, SELFPAY | PROVIDERS: PCP Registered Nurse; Visit Provider Surgery | DX: Z98.890 Other specified postprocedural states (principal); K29.70 Gastritis, unspecified, without bleeding | CPT/HCPCS: 99024 ==

== ENCOUNTER 2022-07-17 06:27 | Outpatient (CLI) | payer MEDICARE, SELFPAY ==
--- NOTE | 2022-07-17 06:48 | NMCV_ITS ---
NM taz perf SPECT r/s* [id number] Luana Robertsody Age: 61 Gender: F : 1960 Exam Date: 07/17/2022 06:48 Ordering Phys: Bryan Anaya M.D ([email or web address]) Technologist: ALISHA Maldonado Exam Location: [facility] Indications: CHEST PAIN STRESS TEST Please see separate stress test report in [facility] for full findings IMAGE PROTOCOL Rest/Stress 1 Exercise Day Radiopharmaceutical Dose (mCi) Administration Site Administered by Rest: Tc-99m 10.6 IV ALISHA Schreiber Sestamibi Stress:Tc-99m 32.6 IV ALISHA Schreiber Sestamidaisy Rest: 17-Jul-2022 60 Discovery 630 Stress: 17-Jul-2022 15 Discovery 630 Radiopharmaceutical was injected at 87 % maximum heart rate. Supine position only as patient was unable to lay prone. (Recent abdominal surgery.) SPECT RESULTS Technical Quality: Excellent Raw Data Analysis: Normal Image Corrections: No attenuation or motion correction applied Summed Stress Score: 0 Summed Rest Score: 0 Summed Difference Score: 0 PERFUSION FINDINGS SPECT images demonstrate homogeneous tracer distribution throughout the myocardium. FUNCTIONAL RESULTS (calculated via Gated SPECT) Stress Image LV EF (%): 82 Stress EDV (mL):67 TID: 0.86 Stress ESV (mL):12 FUNCTIONAL FINDINGS: There is normal left ventricular systolic function. IMPRESSIONS 1. Normal myocardial imaging with no evidence of ischemia. 2. LV systolic function is normal. Bryan Anaya MD (Electronically Signed) Final Date: 17 July 2022 13:14 S
--- NOTE | 2022-07-17 06:48 | ECG_ITS ---
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 Interpretive Statements NAME OF STUDY: EXERCISE SESTAMIBI STRESS TEST INDICATION: [Chest Pain, ] EXERCISE DATA: The patient was exercised by Joao protocol. Baseline heart rate was 91 beats per minute. Baseline blood pressure was 119/78 millimeters of mercury. Target heart rate was 134 beats per minute. Maximum heart rate achieved was 146, which was 108 % of the target heart rate. Maximum blood pressure was 150/78 millimeters of mercury. Total exercise time was 4 minutes 2 seconds. Maximum METs achieved was 7The reason for ending the test was completion of the protocol. The patient complained of shortness of breath during the stress test, which then resolved at the end of the test. ELECTROCARDIOGRAM: BASELINE: Showed sinus rhythm, normal axis, no significant ST-T changes at the baseline noted. [] EXERCISE: At the peak exercise level, No significant ST-T changes suggestive of ischemia noted. RECOVERY: During the recovery period, heart rate dropped appropriately. No significant ST-T changes in the recovery suggestive of ischemia noted. CONCLUSION: 1. Exercise capacity fair. 2. Heart rate response was appropriate. 3. Blood pressure response was appropriate. 4. Symptoms not suggestive of ischemia. 5. Electrocardiogram portion of the stress test was not suggestive of ischemia. 6. Nuclear scan will be documented separately. Electronically Signed On 07-20-2022 10:14:04 CDT by Bryan Anaya M.D. [id number]
[2022-07-17 07:06] VITALS: BMI 20.9
[2022-07-17 09:20] VITALS: BP 118/76; PULSE 97
== END 2022-07-17 06:28 | disposition home or self-care (01) ==
PROVIDERS: PCP Registered Nurse; Visit Provider Internal Medicine
DX: R07.9 Chest pain, unspecified (principal); R06.02 Shortness of breath
CPT/HCPCS: 78452; 93017; A9500

== ENCOUNTER → 2022-07-23 10:24 | Outpatient (BNVA) | payer MEDICARE, SELFPAY | PROVIDERS: PCP Registered Nurse; Visit Provider Internal Medicine Critical Care Medicine | DX: J45.20 Mild intermittent asthma, uncomplicated (principal); Z87.891 Personal history of nicotine dependence | CPT/HCPCS: 99213 ==

== ENCOUNTER → 2022-08-05 15:08 | Outpatient (BNVA) | payer MEDICARE, SELFPAY | PROVIDERS: PCP Registered Nurse; Visit Provider Nurse Practitioner Family | DX: E55.9 Vitamin D deficiency, unspecified (principal); E07.9 Disorder of thyroid, unspecified; E03.9 Hypothyroidism, unspecified | CPT/HCPCS: 82306; 84439; 84443; 84481 ==

== ENCOUNTER → 2022-11-12 11:18 | Outpatient (BNVA) | payer MEDICARE, SELFPAY | PROVIDERS: PCP Registered Nurse; Visit Provider Nurse Practitioner Family | DX: E55.9 Vitamin D deficiency, unspecified (principal); K29.70 Gastritis, unspecified, without bleeding | CPT/HCPCS: 80053; 82306; 82607; 85025 ==

== ENCOUNTER 2023-01-05 12:29 | Outpatient (CLI) | payer MEDICARE, SELFPAY ==
--- NOTE | 2023-01-05 12:37 | XR_ITS ---
WS: [email or web address] Exam: XR KUB [id number] Date/Time of Exam: 01/05/2023 12:49 PM Reason For Exam: Urolithiasis Comparison 01/01/2022. No sign of bowel obstruction or free air. No sign of organ enlargement. Signs of prior cholecystectom y. Moderate amount stool in the colon. Bony elements are intact. XR/XR KUB [id number] IMPRESSION: 1. No acute abdominal finding.
== END 2023-01-05 12:30 | disposition home or self-care (01) ==
PROVIDERS: PCP Registered Nurse; Visit Provider Urology
DX: N20.9 Urinary calculus, unspecified (principal); N39.0 Urinary tract infection, site not specified; N39.41 Urge incontinence
CPT/HCPCS: 74018; 99213

== ENCOUNTER → 2023-02-24 12:43 | Outpatient (BNVA) | payer MEDICARE, SELFPAY | PROVIDERS: PCP Registered Nurse; Visit Provider Internal Medicine | DX: R07.9 Chest pain, unspecified (principal); R06.00 Dyspnea, unspecified; Z87.891 Personal history of nicotine dependence | CPT/HCPCS: 99214 ==

== ENCOUNTER → 2023-05-20 14:58 | Outpatient (BNVA) | payer MEDICARE, SELFPAY | PROVIDERS: PCP Registered Nurse; Visit Provider Registered Nurse | DX: E03.9 Hypothyroidism, unspecified (principal); E53.8 Deficiency of other specified B group vitamins | CPT/HCPCS: 82607; 84443 ==

== ENCOUNTER 2023-05-27 06:00 | Outpatient (RCR) | payer MEDICARE, SELFPAY | END 2023-06-10 23:59 | disposition home or self-care (01) | LOC: WPT 06:00 | PROVIDERS: PCP Registered Nurse; Visit Provider Registered Nurse | DX: M77.8 Other enthesopathies, not elsewhere classified (principal) | CPT/HCPCS: 97110; 97112; 97140; 97161; 97530 ==

== ENCOUNTER 2023-06-11 06:00 | Outpatient (RCR) | payer MEDICARE, SELFPAY | END 2023-06-29 23:59 | disposition home or self-care (01) | LOC: WPT 06:00 | PROVIDERS: PCP Registered Nurse; Visit Provider Registered Nurse | DX: M77.8 Other enthesopathies, not elsewhere classified (principal) | CPT/HCPCS: 97110; 97140; 97530 ==

== ENCOUNTER 2023-08-18 11:13 | Outpatient (CLI) | payer MEDICARE, SELFPAY ==
--- NOTE | 2023-08-18 11:27 | XR_ITS ---
WS: [email or web address] Cervical spine, 7 views including AP, both obliques, open-mouth odontoid, lateral views in flexion, e xtension and neutral positions, 08/18/2023 Clinical Data: M54.12 - Radiculopathy, cervical region Comparison: None. Findings: No compression fractures are seen. There is degenerative disc narrowing at C5-C6, C6-C7 and C7-T1. There is no prevertebral soft tissue swelling. The odontoid is unremarkable. The soft tissues of the neck and the lung apices are normal. The oblique films show neuroforaminal narrowing on the r ight at C5-C6 and C6-C7 and on the left at C6-C7. On flexion and extension there is no limitation of motion or subluxation. Impression: 1. Degenerative disc narrowing at C5-C6, C6/C7 and C7-T1. 2. Neural foraminal narrowing on the right at C5-C6 and C6-C7 and on the left at C6-C7. 3. On flexion and extension there is no limitation of motion or subluxation.
--- NOTE | 2023-08-18 11:27 | XR_ITS ---
WS: [email or web address] Left shoulder, 2 views, 08/18/2023 Clinical Data: S46.912A - Strain of unspecified muscle, fascia and tendo... Comparison: None. Findings: No fractures or dislocations are seen. The AC joint is normal. The adjacent left clavicle, left scapu la and ribs are normal. The soft tissues are unremarkable. Impression: Negative left shoulder.
--- NOTE | 2023-08-18 11:27 | XR_ITS ---
WS: [email or web address] Thoracic spine, 3 views, 08/18/2023 Clinical Data: M54.14 - Radiculopathy, thoracic region Comparison: None. Findings: No compression fractures are seen. The disc heights are normal. There is a slight dextroscoliosis. Minimal osteophytes are present at the vertebral bodies. There are upper abdominal surgical clips noted on the lateral view. Impression: Slight dextroscoliosis with minimal osteoarthritis.
== END 2023-08-18 11:14 | disposition home or self-care (01) ==
PROVIDERS: PCP Registered Nurse; Visit Provider Nurse Practitioner Family
DX: M54.12 Radiculopathy, cervical region (principal); M19.012 Primary osteoarthritis, left shoulder; S46.912A Strain of unspecified muscle, fascia and tendon at shoulder and upper arm level, left arm, initial encounter; M54.14 Radiculopathy, thoracic region; X58.XXXA Exposure to other specified factors, initial encounter; Y93.9 Activity, unspecified; Y92.9 Unspecified place or not applicable; Y99.9 Unspecified external cause status
CPT/HCPCS: 72052; 72072; 73030; 80053; 80061; 81003; 82306; 82607; 82728; 82746; 83036; 83550; 84439; 84443; 84481; 85025

== ENCOUNTER → 2023-08-26 11:44 | Outpatient (BNVA) | payer MEDICARE, SELFPAY | PROVIDERS: PCP Nurse Practitioner Family; Visit Provider Nurse Practitioner Family | DX: N39.0 Urinary tract infection, site not specified (principal); R31.9 Hematuria, unspecified | CPT/HCPCS: 81003; 87086 ==

== ENCOUNTER 2023-09-09 06:00 | Outpatient (RCR) | payer MEDICARE, SELFPAY | END 2023-09-09 23:59 | disposition home or self-care (01) | LOC: WPT 06:00 | PROVIDERS: PCP Nurse Practitioner Family; Visit Provider Nurse Practitioner Family | DX: M54.12 Radiculopathy, cervical region (principal); M54.14 Radiculopathy, thoracic region | CPT/HCPCS: 97161 ==

== ENCOUNTER 2023-09-10 06:00 | Outpatient (RCR) | payer MEDICARE, SELFPAY | END 2023-10-10 23:59 | disposition home or self-care (01) | LOC: WPT 06:00 | PROVIDERS: PCP Nurse Practitioner Family; Visit Provider Nurse Practitioner Family | DX: M54.12 Radiculopathy, cervical region (principal); M54.14 Radiculopathy, thoracic region | CPT/HCPCS: 97110; 97112; 97530 ==

== ENCOUNTER → 2023-09-20 11:14 | Outpatient (BNVA) | payer MEDICARE, SELFPAY | PROVIDERS: PCP Nurse Practitioner Family; Visit Provider Nurse Practitioner Family | DX: Z98.890 Other specified postprocedural states (principal); Z87.19 Personal history of other diseases of the digestive system; D64.9 Anemia, unspecified | CPT/HCPCS: 80053; 82728; 83550; 85025 ==

== ENCOUNTER → 2023-09-30 11:51 | Outpatient (BNVA) | payer MEDICARE, SELFPAY | PROVIDERS: PCP Nurse Practitioner Family; Visit Provider Nurse Practitioner Family | DX: R10.31 Right lower quadrant pain (principal); R79.89 Other specified abnormal findings of blood chemistry; K59.09 Other constipation; L30.9 Dermatitis, unspecified | CPT/HCPCS: 74018 ==

== ENCOUNTER 2023-10-12 05:44 | Outpatient (CLI) | payer MEDICARE, SELFPAY ==
--- NOTE | 2023-10-12 06:15 | USR_ITS ---
PROCEDURE INFORMATION: Exam: US Abdomen Complete Exam date and time: 10/12/2023 6:14 AM Age: 62 years old Clinical indication: Abdominal pain; Localized; Right lower quadrant (rlq); Additional info: R10.31 - right lower quadrant pain, patient has elevated ferritin need liver US TECHNIQUE: Imaging protocol: Real-time ultrasound of the abdomen with image documentation. Complete exam. COMPARISON: US abdomen limited [id number] 03/21/2019 7:16 AM FINDINGS: Liver: Normal. No mass. Gallbladder: Cholecystectomy. Biliary ducts: Normal. No stones. No dilation. Pancreas: Visualized pancreas is unremarkable. Right kidney: 0.8 mm echogenic focus within the mid right kidney likely an angiomyolipoma.. In retrospect this area was barely visible on a prior CT from 06/11/2021. A repeat ultrasound of the right kidney in 6 months recommended to ensure stability. No hydronephrosis. Left kidney: Normal. No mass. No hydronephrosis. Spleen: Normal. No splenomegaly. Aorta: Normal. No aneurysm. Inferior vena cava: Normal. US/US abdomen complete* [id number] IMPRESSION: Subcentimeter likely benign renal mass. Repeat ultrasound in 6 months recommended.
== END 2023-10-12 05:45 | disposition home or self-care (01) ==
LOC: RAD 05:44
PROVIDERS: PCP Nurse Practitioner Family; Visit Provider Nurse Practitioner Family
DX: N28.89 Other specified disorders of kidney and ureter (principal); R10.31 Right lower quadrant pain; R79.89 Other specified abnormal findings of blood chemistry
CPT/HCPCS: 76700

== ENCOUNTER → 2023-11-24 12:46 | Outpatient (BNVA) | payer MEDICARE, SELFPAY | PROVIDERS: PCP Nurse Practitioner Family; Visit Provider Internal Medicine | DX: R07.9 Chest pain, unspecified (principal); R06.00 Dyspnea, unspecified | CPT/HCPCS: 99214 ==

== ENCOUNTER 2023-12-01 08:51 | Outpatient (CLI) | payer MEDICARE, SELFPAY ==
--- NOTE | 2023-12-01 09:30 | USCV_ITS ---
Evelin Roberts Age: 63 Gender: F : 1960 Exam Date: 12/01/2023 10:06 Ordering Phys: Bryan Anaya M.D ([email or web address]) Technologist: JOSE J Exam Location: [facility] [place] Indication: CHEST PAIN, SHORTNESS OF BREATH. KNOWN MVP BP: 116 / 62 HR: 64 Rhythm: Sinus Technical Quality: Adequate MEASUREMENTS (Male / Female) Normal Values 2D ECHO LV Diastolic Diameter PLAX 4.6 cm 4.2 - 5.9 / 3.9 - 5.3 cm IVS Diastolic Thickness 0.9 cm 0.6 - 1.0 / 0.6 - 0.9 cm IVS Systolic Thickness 1.1 cm LVPW Diastolic Thickness 1.1 cm 0.6 - 1.0 / 0.6 - 0.9 cm LVPW Systolic Thickness 1.9 cm LVOT Diameter 2.0 cm LV Ejection Fraction 2D Teich 70.9 % LV Ejection Fraction MOD 2C 71.3 % Aorta at Sinotubular Diameter 2.1 cm IVC Diameter 1.6 cm M-MODE LA Ao Ratio MM 1.5 AV Cusp Separation MM 1.6 cm DOPPLER AV Peak Velocity 115.0 cm/s LVOT Peak Velocity 110.0 cm/s AV Area Cont Eq vti 2.8 cm squared AV Area Cont Eq pk 3.0 cm squared MV Area PHT 3.6 cm squared Mitral E to A Ratio 1.1 TR Peak Velocity 231.0 cm/s TR Peak Gradient 21.3 mmHg Right Atrial Pressure 3.0 mmHg Pulmonary Artery Systolic Pressu 24.3 mmHg PV Peak Velocity 95.0 cm/s FINDINGS Left Ventricle Left ventricle is normal in size. LV systolic function is normal with EF of 60 to 65%. No regional wall motion abnormalities are seen. Diastolic function is normal Right Ventricle Normal in size and function Right Atrium Normal in size Left Atrium Normal in size Mitral Valve Mitral valve prolapse seen. Mild mitral regurgitation. Aortic Valve Structurally normal aortic valve. No significant stenosis or regurgitation. Tricuspid Valve Mild tricuspid regurgitation. Pulmonary artery systolic pressure is normal. Pulmonic Valve Trace pulmonic regurgitation. Pericardium Normal Aorta Normal in size IVC Appears to be normal CONCLUSIONS LV systolic function is normal with EF of 60 to 65%. Diastolic function is normal. Mild mitral regurgitation Mild tricuspid regurgitation Trace pulmonic regurgitation Compared to prior echocardiogram from 2021, no significant changes are seen. Bryan Anaya MD (Electronically Signed) Final Date: 04 December 2023 13:17 S
== END 2023-12-01 08:52 | disposition home or self-care (01) ==
LOC: RAD 08:51
PROVIDERS: PCP Nurse Practitioner Family; Visit Provider Internal Medicine
DX: I08.1 Rheumatic disorders of both mitral and tricuspid valves (principal)
CPT/HCPCS: 93306

== ENCOUNTER → 2024-05-02 08:40 | Outpatient (BNVA) | payer MEDICARE, SELFPAY | PROVIDERS: PCP Nurse Practitioner Family; Visit Provider Nurse Practitioner Family | DX: D64.9 Anemia, unspecified (principal); R79.89 Other specified abnormal findings of blood chemistry; R53.83 Other fatigue; E03.9 Hypothyroidism, unspecified; E78.2 Mixed hyperlipidemia | CPT/HCPCS: 80053; 80061; 82728; 83550; 84443; 85007; 85027; 85651; 86140 ==

== ENCOUNTER 2024-05-30 07:17 | Outpatient (CLI) | payer MEDICARE, SELFPAY ==
--- NOTE | 2024-05-30 08:00 | US_ITS ---
WS: [id number] Complete ABDOMINAL ULTRASOUND HISTORY: N28.89 - Other specified disorders of kidney and ureter COMPARISON: 10/12/2023 Liver: 13.5 cm in length. Normal size liver and echogenicity. No bile duct dilatation or mass. Portal Vein: Normal hepatopetal flow with monophasic waveform. Gallbladder: Prior cholecystectomy. CBD: 0.5 cm Pancreas: Tail of the pancreas is not visualized well. Shadowed by bowel gas. Right kidney: 9.3 cm x 4.4 x 3.8 cm. Cortex:1.0 cm. Normal size kidney. Reidentified is the tiny hyperechoic area in the mid RIGHT kidney measuring 0.6 x 0.6 x 0.6 cm which is unchanged since the prior exam. No solid mass. No obstruction. Left kidney: 9.4 cm x 4.1 cm x 4.4 cm. Cortex: 1.0 cm. Normal size and echogenicity. No hydronephrosis or mass. Spleen: 9.0 cm. Normal size and echogenicity. Aorta and IVC: Unremarkable abdominal aorta and IVC. US/US abdomen complete* [id number] Impression: 1. Prior cholecystectomy. 2. No increase in size of the hyperechoic cortical lesion in the mid RIGHT kid asif with a maximum diameter of 0.6 cm. 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
== END 2024-05-30 07:18 | disposition home or self-care (01) ==
PROVIDERS: PCP Nurse Practitioner Family; Visit Provider Nurse Practitioner Family
DX: N28.89 Other specified disorders of kidney and ureter (principal); R79.89 Other specified abnormal findings of blood chemistry; Z80.0 Family history of malignant neoplasm of digestive organs; M25.50 Pain in unspecified joint
CPT/HCPCS: 76700; 86038; 86200; 86431

== ENCOUNTER → 2024-06-07 08:42 | Outpatient (BNVA) | payer MEDICARE, SELFPAY | PROVIDERS: PCP Nurse Practitioner Family; Visit Provider Nurse Practitioner Family | DX: R76.8 Other specified abnormal immunological findings in serum (principal); M25.541 Pain in joints of right hand; M25.542 Pain in joints of left hand | CPT/HCPCS: 73120; 73130 ==

== ENCOUNTER 2024-06-13 09:11 | Outpatient (CLI) | payer MEDICARE, SELFPAY ==
[2024-06-13] MEDS: iohexol 350 mg/mL 500 mL Btl (per mL) IV (09:39)
--- NOTE | 2024-06-13 10:15 | CT_ITS ---
WS: [email or web address] Examination: CT abdomen pelvis wo/w [id number] Reason for Exam: N20.9 - Urinary calculus, unspecified Date: May 13, 2024 Comparison: Noncontrast study dated 06/11/2021 DLP: 897.[address] scans at [facility] use at least one of these dose optimization techniques: automated e xposure control; mA and/or kV adjustment per patient size (includes targeted exams where dose is matc hed to clinical indication); or iterative reconstruction. Findings: The heart is mildly prominent in size. There is no basilar effusion. Suspected chronic change in the right middle lobe is identified anteriorly. There is a hiatal hernia present. The kidneys are symmetric and normal in size. There is a punctate nonobstructing stone on the right k idney. The kidneys are well-perfused. Small cysts are present. The ureters are not dilated. Numerous phleboliths are identified in the pelvis. A definite ureteral s tone is not appreciated. There is no bladder calculi. The liver is normal in size. The gallbladder is been removed. The portal vein is patent. There are a couple small less than 5 mm hypodensities in the liver which may represent cysts but are too small to characterize.. The spleen is unremarkable. There is no adrenal mass. The pancreas is unremarkable. The aorta is normal in size. There is no small bowel obstruction. There is a moderate stool burden. Numerous scattered diverticuli of the colon are identified particularly in the sigmoid colon. I see no evidence of diverticulitis. The appendix is not enlarged. There is soft tissue prominence involving the mid and upper rectum. This area is not well distended h owever mass cannot be excluded. There is no free fluid. There is no free air. There is dominant L4-[address] abdomen pelvis wo/w [id number] Impression: There is a small nonobstructing right renal calculi. No hydronephrosis is ident ified. Small cysts are suspected bilaterally. There is no ureteral dilatation o r definite ureteral stone. Numerous phleboliths are noted in the pelvis particu larly along the course of the lower left ureter. No bladder stone is identified . There is extensive uncomplicated colonic diverticulosis with a moderate stool b urden. While not well distended there is soft tissue prominence of the mid and upper r ectum. A mass cannot be excluded.. Colonoscopy is recommended for further evalu ation.
== END 2024-06-13 09:12 | disposition home or self-care (01) ==
LOC: RAD 09:11
PROVIDERS: PCP Nurse Practitioner Family; Visit Provider Nurse Practitioner Family
DX: N20.9 Urinary calculus, unspecified (principal); K44.9 Diaphragmatic hernia without obstruction or gangrene; N20.0 Calculus of kidney; Q61.02 Congenital multiple renal cysts; K59.00 Constipation, unspecified; K57.90 Diverticulosis of intestine, part unspecified, without perforation or abscess without bleeding; M51.36 Other intervertebral disc degeneration, lumbar region; I87.8 Other specified disorders of veins; K62.89 Other specified diseases of anus and rectum; R31.9 Hematuria, unspecified; R10.2 Pelvic and perineal pain
CPT/HCPCS: 74178

== ENCOUNTER 2024-06-22 13:21 | Oncology outpatient (recurring) (ONCR) | payer MEDICARE, SELFPAY ==
[2024-06-22 15:24] LABS: Basophils % 0.7 %; Eosinophils # 0.1 10^3/uL (0.0-0.8); Hematocrit 39.2 % (36-47); Lymphocytes # 1.6 10^3/uL (0.8-4.8); Lymphocytes % 26.7 %; Mean Corpuscular HGB Conc 32.9 g/dL (30-55); Mean Corpuscular Hemoglobin 30.9 pg (27-33); Mean Platelet Volume 9.9 fL (7.4-10.4); Monocytes # 0.6 10^3/uL (0.2-0.9); Monocytes % 10.1 %; Neutrophils # 3.58 10^3/uL (1.8-7.7); Neutrophils % 61.3 %; Nucleated Red Blood Cells % 0 %; Platelet Count 192 10^3/cmm (157-399); Red Blood Count 4.17 10^6/uL (3.85-5.65); Red Cell Distribution Width 13.7 % (12.1-15.1); White Blood Count 5.84 10^3/uL (3.29-11.43)
[2024-06-22 15:58] LABS: Erythrocyte Sedimentation Rate 1 mm/hr (0-15)
[2024-06-22 15:59] LABS: Alanine Aminotransferase 10 U/L (0-33); Albumin Level 4.2 g/dL (3.5-5.2); Alkaline Phosphatase 42 U/L (35-105); Aspartate Amino Transferase 16 U/L (0-32); Blood Urea Nitrogen 16 mg/dL (8-23); Calcium 9.1 mg/dL (8.5-10.5); Carbon Dioxide 26 mmol/L (22-29); Chloride 103 mmol/L (98-107); Creatinine Clr Calc Pharmacy 61.6123; Globulin 2.8 g/dL (1.3-4.6); Glomerular Filtration Rate 72.2 mL/min (90-130); Glucose 138 mg/dL (65-115); Osmolality Calculated 291 mOsm/kg (285-295); Sodium 139 mmol/L (136-145); T3 Free 2.5 PG/ML (2.0-4.4); Thyroid Stimulating Hormone 5.58 uIU/mL (0.27-4.20); Total Bilirubin 0.4 mg/dL (0.15-1.2)
[2024-06-22 16:27] LABS: Ferritin 316 ng/mL (15-150); Iron 60 ug/dL (37-145); Percent Saturation 27.6 % (20-50); Total Iron Binding Capacity 217 mcg/dl; Unsaturated Iron Binding 157 ug/dL (112-347)
[2024-06-22 16:43] LABS: Vitamin B12 422 pg/mL (232-1245)
[2024-06-27 11:10] LABS: Anti-Nuclear Antibody Pattern Nuclear, Homogeneous; Anti-Nuclear Antibody Screen POSITIVE (NEGATIVE); Anti-Nuclear Antibody Titer 1:40 titer
== END 2024-07-10 23:59 | disposition home or self-care (01) ==
PROVIDERS: PCP Nurse Practitioner Family; Visit Provider Internal Medicine Medical Oncology
DX: R79.89 Other specified abnormal findings of blood chemistry (principal); R53.83 Other fatigue; M25.50 Pain in unspecified joint; K59.09 Other constipation; Z98.890 Other specified postprocedural states; E89.0 Postprocedural hypothyroidism
CPT/HCPCS: 36415; 80053; 81256; 82607; 82728; 83540; 83550; 84439; 84443; 84481; 85025; 85651; 86038; 86140; 99204

== ENCOUNTER 2024-10-09 10:36 | Oncology outpatient (recurring) (ONCR) | payer MEDICARE, SELFPAY | END 2024-10-10 23:59 | disposition home or self-care (01) | PROVIDERS: PCP Nurse Practitioner Family; Visit Provider Internal Medicine Medical Oncology | DX: R79.89 Other specified abnormal findings of blood chemistry (principal); E83.110 Hereditary hemochromatosis | CPT/HCPCS: 99214 ==

== ENCOUNTER 2024-11-28 07:35 | Oncology outpatient (recurring) (ONCR) | payer MEDICARE, SELFPAY ==
[2024-11-28 07:56] LABS: Basophils # 0.1 10^3/uL (0.0-0.1); Basophils % 0.8 %; Eosinophils # 0.1 10^3/uL (0.0-0.8); Eosinophils % 1.5 %; Hematocrit 41.4 % (36-47); Lymphocytes % 33.8 %; Mean Corpuscular HGB Conc 33.3 g/dL (30-55); Mean Corpuscular Hemoglobin 30.9 pg (27-33); Mean Corpuscular Volume 92.6 fl (85-98); Mean Platelet Volume 9.9 fL (7.4-10.4); Monocytes # 0.5 10^3/uL (0.2-0.9); Monocytes % 8.2 %; Neutrophils # 3.33 10^3/uL (1.8-7.7); Neutrophils % 55.5 %; Nucleated Red Blood Cells % 0 %; Platelet Count 220 10^3/cmm (157-399); Red Blood Count 4.47 10^6/uL (3.85-5.65); Red Cell Distribution Width 13.5 % (12.1-15.1)
[2024-11-28 08:23] LABS: Ferritin 322 ng/mL (15-150)
[2024-11-28 10:21] VITALS: BP 110/71; PULSE 70; O2SAT 96
== END 2024-12-08 23:59 | disposition home or self-care (01) ==
PROVIDERS: PCP Nurse Practitioner Family; Visit Provider Internal Medicine Medical Oncology
DX: R79.89 Other specified abnormal findings of blood chemistry (principal); R76.8 Other specified abnormal immunological findings in serum; D64.9 Anemia, unspecified; N20.2 Calculus of kidney with calculus of ureter; Z87.19 Personal history of other diseases of the digestive system; Z98.890 Other specified postprocedural states
CPT/HCPCS: 36415; 82728; 85025; 99195

== ENCOUNTER 2024-12-11 14:29 | Oncology outpatient (recurring) (ONCR) | payer MEDICARE, SELFPAY ==
--- NOTE | 2024-12-11 15:00 | CT_ITS ---
WS: [email or web address] CT kidney stone [id number] REASON FOR EXAM: N28.89 - Other specified disorders of kidney and ureter IV CONTRAST ADMINISTERED: None. TOTAL EXAM DLP: 272.[address] scans at [facility] use at least one of these dose optimization techniques: automated exposure control; mA and/or kV adjustment per patient size (includes targeted exams where dose is matched to clinical indication); or iterative reconstruction. COMPARISON: CT scan of the abdomen and pelvis with intravenous contrast 06/13/2024. FINDINGS: ABDOMEN: Chronic anterior right middle lobe lung opacities unchanged compared to the previous study. Small hiatal hernia unchanged. Cholecystectomy. Small hypodensities within the liver, unchanged, not significant. Small intrarenal calculus lower pole of the right kidney slightly larger than on the previous examination. Less then 3 mm. No other urinary tract calculi. No mass adenopathy, free fluid, or focal fluid collection. PELVIS: Bowel wall does not well evaluated without intravenous contrast. However there does appear to be mural thickening of the rectum, relatively symmetric, as was noted on the previous examination. Sigmoid diverticulosis without evidence of diverticulitis. There are no new findings within the abdomen or pelvis. CT/CT kidney stone [id number] IMPRESSION: Slight increase in the diameter of the small right renal calculus as above. Rectum is abnormal which may relate to previous rectal surgery? Either by direc t visualization or correlation with the surgical history rectal carcinoma shoul d be excluded.
== END 2025-01-08 23:59 | disposition home or self-care (01) ==
PROVIDERS: PCP Nurse Practitioner Family; Visit Provider Nurse Practitioner Family
DX: N28.89 Other specified disorders of kidney and ureter (principal); K62.9 Disease of anus and rectum, unspecified
CPT/HCPCS: 74176

== ENCOUNTER → 2024-12-25 13:51 | Outpatient (BNVA) | payer MEDICARE, SELFPAY | PROVIDERS: PCP Nurse Practitioner Family; Visit Provider Nurse Practitioner Family | DX: E03.9 Hypothyroidism, unspecified (principal) | CPT/HCPCS: 80053; 81003; 83735; 84439; 84443 ==

== ENCOUNTER → 2025-01-04 12:17 | Outpatient (BNVA) | payer MEDICARE, SELFPAY | PROVIDERS: PCP Nurse Practitioner Family; Visit Provider Internal Medicine | DX: R07.9 Chest pain, unspecified (principal); R06.00 Dyspnea, unspecified | CPT/HCPCS: 99214 ==

== ENCOUNTER 2025-02-12 07:44 | Oncology outpatient (recurring) (ONCR) | payer MEDICARE, SELFPAY ==
--- NOTE | 2025-02-12 08:30 | USCV_ITS ---
Evelin Roberts Age: 64 Gender: F : 1960 Exam Date: 02/12/2025 08:31 Ordering Phys: Bryan Anaya M.D ([email or web address]) Technologist: ALEXANDRA Exam Location[place] [facility] [place] Indication: SoB, CP BP: 136 / 66 HR: 73 Rhythm: Sinus Technical Quality: Adequate MEASUREMENTS (Male / Female) Normal Values 2D ECHO LV Diastolic Diameter PLAX 4.3 cm 4.2 - 5.9 / 3.9 - 5.3 cm IVS Diastolic Thickness 1.2 cm 0.6 - 1.0 / 0.6 - 0.9 cm IVS Systolic Thickness 1.2 cm LVPW Diastolic Thickness 0.8 cm 0.6 - 1.0 / 0.6 - 0.9 cm LVPW Systolic Thickness 1.2 cm LVOT Diameter 1.9 cm LV Ejection Fraction 2D Teich 65.4 % LV Ejection Fraction MOD 4C 64.5 % LV Ejection Fraction MOD 2C 64.2 % LV Ejection Fraction 2C AL 65.3 % LA Diameter 2.8 cm RA Systolic Volume 4C AL 33.1 ml RA Systolic Volume 4C MOD 25.8 ml LA Sys Volume AL 34.3 cm cubed LA Sys Volume Index AL 21.0 cm cubed/m squared Aorta at Sinotubular Diameter 2.4 cm IVC Diameter 1.7 cm M-MODE LA Ao Ratio MM 1.3 AV Cusp Separation MM 1.1 cm DOPPLER AV Peak Velocity 149.0 cm/s LVOT Peak Velocity 119.0 cm/s AV Area Cont Eq vti 2.3 cm squared AV Area Cont Eq pk 2.3 cm squared MV Peak Velocity 102.0 cm/s MV Area PHT 5.5 cm squared Mitral E to A Ratio 1.0 TV Peak Velocity 189.5 cm/s TR Peak Velocity 259.0 cm/s TR Peak Gradient 26.8 mmHg TV Peak E Velocity 95.0 cm/s PV Peak Velocity 101.0 cm/s FINDINGS Left Ventricle Left ventricle is normal size. LV systolic function is normal with EF of 60-65%. No regional wall abnormalities are seen. Right Ventricle Normal in size and function Right Atrium Normal in size Left Atrium Normal in size Mitral Valve Structurally normal mitral valve. Mild mitral regurgitation. Aortic Valve Structurally normal aortic valve. No significant stenosis or regurgitation. Tricuspid Valve Mild tricuspid regurgitation. Pulmonary artery systolic pressure is normal. Pulmonic Valve Not well visualized Pericardium Normal Aorta Normal in size IVC Appears to be normal CONCLUSIONS LV systolic function is normal with EF of 60-65% Mild mitral regurgitation Mild tricuspid regurgitation. Bryan Anaya MD (Electronically Signed) Final Date: 23 Feb 2025 13:11 S
== END 2025-03-10 23:59 | disposition home or self-care (01) ==
LOC: RAD 07:46 → ONCMED 09:41
PROVIDERS: PCP Nurse Practitioner Family; Visit Provider Internal Medicine
DX: N28.89 Other specified disorders of kidney and ureter (principal); K62.9 Disease of anus and rectum, unspecified; R07.9 Chest pain, unspecified; R06.02 Shortness of breath; I08.1 Rheumatic disorders of both mitral and tricuspid valves
CPT/HCPCS: 93306

== ENCOUNTER → 2025-04-24 07:59 | Outpatient (BNVA) | payer MEDICARE, SELFPAY | PROVIDERS: PCP Nurse Practitioner Family; Visit Provider Nurse Practitioner Family | DX: E78.2 Mixed hyperlipidemia (principal); E03.9 Hypothyroidism, unspecified; E55.9 Vitamin D deficiency, unspecified; E53.8 Deficiency of other specified B group vitamins; K62.5 Hemorrhage of anus and rectum; D64.9 Anemia, unspecified; R53.1 Weakness; R79.89 Other specified abnormal findings of blood chemistry | CPT/HCPCS: 80053; 80061; 81003; 82270; 82306; 82607; 82728; 82746; 83036; 83550; 84443; 85025 ==

== ENCOUNTER → 2025-06-28 08:58 | Outpatient (BNVA) | payer MEDICARE, SELFPAY | PROVIDERS: PCP Nurse Practitioner Family; Visit Provider Nurse Practitioner Family | DX: S93.602A Unspecified sprain of left foot, initial encounter (principal); S92.352A Displaced fracture of fifth metatarsal bone, left foot, initial encounter for closed fracture; X58.XXXA Exposure to other specified factors, initial encounter | CPT/HCPCS: 73630 ==

== ENCOUNTER → 2025-06-29 11:55 | Outpatient (BNVA) | payer MEDICARE, SELFPAY | PROVIDERS: PCP Nurse Practitioner Family; Visit Provider Podiatrist Foot & Ankle Surgery | DX: S92.355A Nondisplaced fracture of fifth metatarsal bone, left foot, initial encounter for closed fracture (principal); W19.XXXA Unspecified fall, initial encounter | CPT/HCPCS: 28470; 99204 ==

== ENCOUNTER → 2025-07-11 14:19 | Outpatient (BNVA) | payer MEDICARE, SELFPAY | PROVIDERS: PCP Nurse Practitioner Family; Visit Provider Podiatrist Foot & Ankle Surgery | DX: S92.355A Nondisplaced fracture of fifth metatarsal bone, left foot, initial encounter for closed fracture (principal); X58.XXXA Exposure to other specified factors, initial encounter; M79.672 Pain in left foot | CPT/HCPCS: 73630; 99213 ==

== ENCOUNTER → 2025-08-01 09:06 | Outpatient (BNVA) | payer MEDICARE, SELFPAY | PROVIDERS: PCP Nurse Practitioner Family; Visit Provider Podiatrist Foot & Ankle Surgery | DX: S92.355A Nondisplaced fracture of fifth metatarsal bone, left foot, initial encounter for closed fracture (principal); M79.672 Pain in left foot; X58.XXXA Exposure to other specified factors, initial encounter | CPT/HCPCS: 73630; 99213 ==

== ENCOUNTER → 2025-08-20 10:03 | Outpatient (BNVA) | payer MEDICARE, SELFPAY | PROVIDERS: PCP Nurse Practitioner Family; Visit Provider Podiatrist Foot & Ankle Surgery | DX: S92.355A Nondisplaced fracture of fifth metatarsal bone, left foot, initial encounter for closed fracture (principal); M79.672 Pain in left foot; X58.XXXA Exposure to other specified factors, initial encounter | CPT/HCPCS: 73630; 99213 ==

== ENCOUNTER → 2025-09-17 10:59 | Outpatient (BNVA) | payer MEDICARE, SELFPAY | PROVIDERS: PCP Nurse Practitioner Family; Visit Provider Podiatrist Foot & Ankle Surgery | DX: S92.355A Nondisplaced fracture of fifth metatarsal bone, left foot, initial encounter for closed fracture (principal); X58.XXXA Exposure to other specified factors, initial encounter | CPT/HCPCS: 73630; 99213 ==

== ENCOUNTER 2025-10-09 07:41 | Oncology outpatient (recurring) (ONCR) | payer MEDICARE, SELFPAY ==
[2025-10-09 08:07] LABS: Hematocrit 40.5 % (36-47); Hemoglobin 13.70 g/dL (11.27-16.99); Mean Corpuscular HGB Conc 33.8 g/dL (30-55); Mean Corpuscular Hemoglobin 31.4 pg (27-33); Mean Corpuscular Volume 92.9 fl (85-98); Nucleated Red Blood Cells % 0 %; Platelet Count 218 10^3/cmm (157-399); Red Blood Count 4.36 10^6/uL (3.85-5.65); White Blood Count 5.97 10^3/uL (3.29-11.43)
[2025-10-09 08:28] LABS: Alanine Aminotransferase 11 U/L (0-33); Albumin Level 4.3 g/dL (3.5-5.2); Alkaline Phosphatase 42 U/L (35-105); Anion Gap 15.3 (5-19); Aspartate Amino Transferase 17 U/L (0-32); Blood Urea Nitrogen 16 mg/dL (8-23); Calcium 9.4 mg/dL (8.5-10.5); Carbon Dioxide 25 mmol/L (22-29); Chloride 104 mmol/L (98-107); Creatinine Clr Calc Pharmacy 60.9021; Ferritin 223 ng/mL (15-150); Globulin 2.8 g/dL (1.3-4.6); Glucose 91 mg/dL (65-115); Iron 116 ug/dL (37-145); Osmolality Calculated 291 mOsm/kg (285-295); Potassium 4.3 mmol/L (3.5-5.1); Sodium 140 mmol/L (136-145); Total Iron Binding Capacity 242 mcg/dl; Total Protein 7.1 g/dL (6.6-8.7); Unsaturated Iron Binding 126 ug/dL (112-347)
== END 2025-10-10 23:59 | disposition home or self-care (01) ==
PROVIDERS: Internal Medicine Medical Oncology; PCP Nurse Practitioner Family; Visit Provider Nurse Practitioner
DX: E83.110 Hereditary hemochromatosis (principal); R79.89 Other specified abnormal findings of blood chemistry; R76.89 Other specified abnormal immunological findings in serum; D64.9 Anemia, unspecified; N20.2 Calculus of kidney with calculus of ureter; Z87.19 Personal history of other diseases of the digestive system; Z98.890 Other specified postprocedural states; Z87.891 Personal history of nicotine dependence
CPT/HCPCS: 80053; 82728; 83540; 83550; 85025; 99195; 99214